=== PATIENT | male | born 1960 | race Caucasian/White ===

== ENCOUNTER 2016-11-14 07:14 | Day surgery (SDC) | payer OTHER ==
[~2016-11-14] VITALS: Ht 185.4 cm; Wt 120.0 kg
[~2016-11-14 07:14] MED LIST: 0.9% Sodium Chloride 1,000 ML IV SCH; AMLO10TA5 PO; BENZ200C44 PO; BUSP15TA3 PO; CETI10CA PO; FLUT9.9S NS; HYDR25TA4 PO; IBUP800T28 PO; LEVO500T79 PO; LISI-567 PO; PANT40TA2 PO; PRED50TA PO; SILD20TA14 PO; Sodium Chloride LOK Flush 10 mL Syringe IV PRN; fentaNYL-PF 50 mCg/mL 2 mL Inj IVPUSH PRN
[2016-11-14 07:46] VITALS: BP 130/84; PULSE 82; RESP 16; O2SAT 98
[2016-11-14 08:14] VITALS: BP 106/75; PULSE 78; RESP 12; O2SAT 98
--- NOTE | 2016-11-14 08:21 | ENDO ---
[address] [address] ENDOSCOPY PROCEDURE PATIENT: NIYAH ROME : 1960 MR#: [id number] ADMIT: 11/14/2016 JOB ID: [id number] DATE: 11/14/2016 PROCEDURE: Colonoscopy. INDICATION: Colon cancer screening. The patient's ASA classification is 2. Mallampati score is 2. MEDICATIONS: Please see nurse's notes. INSTRUMENT USED: PCF H 180 AL. PREPARATION QUALITY: Good. PROCEDURE DETAILS: After informed consent was obtained, the patient was brought to the GI suite, where he was placed on oxygen via nasal cannula and monitored with continuous pulse oximeter, telemetry and blood pressure monitoring. A time-out was performed. Then, he was placed in a left lateral decubitus position and medications were administered for sedation. Digital rectal exam was performed which was unremarkable. The colonoscope was then inserted into the rectum and advanced to the distal sigmoid colon where we encountered a mass. The mass was quite friable. I was unable to advance the scope beyond this point secondary to luminal narrowing from this circumferential mass. Multiple biopsies were obtained of the mass and Jenny ink was injected just distal to the mass. Retroflexion was performed in the rectum, which was unremarkable. IMPRESSION: Distal sigmoid tumor, appearance suggestive of malignant neoplasm. RECOMMENDATIONS: 1. CT chest, abdomen and pelvis with IV contrast. 2. Check CBC and CMP. 3. Oncology and surgical consultations. COMPLICATIONS: None. ESTIMATED BLOOD LOSS: Less than 5 mL.
[2016-11-14 08:30] VITALS: BP 111/77; PULSE 91; RESP 16; O2SAT 98
[2016-11-14 09:15] LABS: Mean Corpuscular Hemoglobin 26.9 pg (27.0-35.0); Mean Corpuscular Volume 82.8 fL (81-100)
--- NOTE | 2016-11-19 11:23 | PATH ---
SURGICAL PATHOLOGY Attending Physician:Renate Cobian CASE STATUS: Signed Out PATIENT NAME: NIYAH ROME PID: [id number] : 1960 DATE COLLECTED:11/14/2016 15:27 SPECIMEN: Colon, Biopsy CLINICAL HISTORY: 1. SIGMOID MASS BIOPSY FINAL DIAGNOSIS: Sigmoid Colon Mass Biopsy: Adenocarcinoma, poorly differentiated (high grade). Mismatch repair gene panel by immunohistochemistry ordered to be reported by addendum. Case reviewed by Dr. Kyung Reis who agrees with the diagnosis. Results of this evaluation are telephoned to the office of Dr. Corby Bianchi at 0955 on 11/17/2016. ICD10: C18.7 GROSS DESCRIPTION: The specimen is received in one formalin filled container labeled with the patient's name, sublabeled "sigmoid mass" and consists of 4 portions of tissue which aggregate to 0.3 x 0.3 x 0.3 CM. The specimen is entirely submitted in one cassette. 11/14/2016 [facility] ICD-9 CODES: CPT CODES: 1: 20063, 47613, 92845, 44771, 21582 PROCEDURE/ADDENDA: Addendum SPI Addendum Diagnosis IMMUNOHISTOCHEMISTRY RESULTS: Sigmoid Mass Biopsy (MMR panel): MLH1: Tumor cells positive. Intact nuclear expression. MSH2: Tumor cells positive. Intact nuclear expression. MSH6: Tumor cells positive. Intact nuclear expression. PMS2: Tumor cells positive. Intact nuclear expression. INTERPRETATION: Positive staining indicates no loss of nuclear expression of MMR proteins: low probability of microsatellite instability-high (MSI-H)* * There are exceptions to the above IHC interpretations. These results should not be considered in isolation, and clinical correlation with genetic counseling is recommended to assess the need for germline testing. * This test was developed and its performance characteristics determined by [facility]. It has not been cleared or approved by the U.S. Food and Drug Administration. The FDA has determined that such clearance or approval is not necessary. This test is used for clinical purposes. It should not be regarded as investigational or for research. Addendum Comment {Not Entered} Electronically Signed Out Dariel Pool MD Electronically Signed Out Dariel Pool MD [facility] [address], [place] [address] Technical component performed at [facility], [address], [place], [address]
[2016-11-21] MEDS ORDERED: DXPN25C PO (09:06)
== END 2016-11-14 23:59 | disposition home or self-care (01) ==
LOC: END 07:14
PROVIDERS: ATTEND Internal Medicine Gastroenterology
DX: Z12.11 Encounter for screening for malignant neoplasm of colon (principal); C18.7 Malignant neoplasm of sigmoid colon; Z83.71 Family history of colonic polyps
CPT/HCPCS: 36415; 45380; 45381; 80053; 82378; 85027; G0500; J2250; J3010; J7030

== ENCOUNTER 2016-11-27 05:36 | Inpatient (IN) | payer OTHER ==
[2016-11-27] VITALS (16 sets, daily range): BP systolic 131–155; BP diastolic 74–92; PULSE 81–133; RESP 11–20; O2SAT 96–100
[~2016-11-27] VITALS: Ht 185.4 cm; Wt 124.8 kg
[~2016-11-27 05:36] MED LIST changes: -0.9% Sodium Chloride 1,000 ML IV SCH; -BENZ200C44 PO; +CALC600T12 PO; +DXPN25C PO; -LEVO500T79 PO; +MULT-1073 PO; +OMEP40CA36 PO; +POTA99TA21 PO; -PRED50TA PO; -Sodium Chloride LOK Flush 10 mL Syringe IV PRN; -fentaNYL-PF 50 mCg/mL 2 mL Inj IVPUSH PRN; +magnesium PO
[2016-11-27] MEDS ORDERED: Bupivacaine Liposome 1.3% 20 mL Inj INFILTRATE ONE (06:00)
[2016-11-27] MEDS ORDERED: metroNIDAZOLE Inj 500 MG in IV Premix 1 EACH IV ONE (06:00)
[2016-11-27] MEDS ORDERED: Clindamycin Inj 900 MG in IV Premix 1 EACH IV ONE (06:00)
[2016-11-27] MEDS: Lactated Ringer's 1,000 ML IV SCH ×2 (06:32→07:37)
--- NOTE | 2016-11-27 07:23 | PCM.HPANE ---
Patient Data Date of Service: Nov 27, 2016 Surgeon Admitting Provider: Attending Provider:Dashawn Jean MD Primary Care Physician:Meredith Bush MD Other Provider:Dylan Castillo Anesthesia Reason for Visit Sigmoid Colon Cancer Ht/WT & BMI Height (Feet): 6 Height (Inches): 1 Weight (Kilograms): 118.9 Body Mass Index 34.00 Allergies Coded Allergies: amoxicillin (Verified Allergy, Severe, BREATHING PROBLEMS, 11/25/16) cefaclor (Verified Allergy, Severe, ABD CRAMPING, 11/25/16) cimetidine (Verified Allergy, Severe, DISORIENTATION, 11/25/16) clavulanic acid (Verified Allergy, Severe, resp. difficulty, 11/25/16) ofloxacin (Verified Allergy, Severe, DIZZINESS, 11/21/16) prednisone (Verified Allergy, Severe, DIFFICULTY BREATHING, 11/25/16) Sulfa (Sulfonamide Antibiotics) (Verified Allergy, Unknown, UNKNOWN, ) alprazolam (Verified Allergy, Unknown, UNKNOWN, 11/25/16) codeine (Verified Allergy, Unknown, UNKNOWN, 11/21/16) erythromycin base (Verified Allergy, Unknown, UNKNOWN, 11/25/16) guaifenesin (Verified Allergy, Unknown, UNKNOWN, 11/25/16) hydrocodone (Verified Allergy, Unknown, UNKNOWN (PT TAKING DRUG), 11/25/16) phenylephrine (Verified Allergy, Unknown, UNKNOWN, 11/25/16) pseudoephedrine (Verified Allergy, Unknown, UNKNOWN, 11/25/16) Past Anesthesia History Anesthesia History: Denies:: Abnormal Airway, Anesthesia Reactions, Difficult Intubation, Fam Anesthesia Reaction, Fam Malignant Hypertherm, Malignant Hyperthermia Diabetes History Hx Diabetes?: No Current Bedside Blood Glucose: 87 MRSA MRSA: No Medications Blood Thinner: Aspirin Last Dose Blood Thinner: Nov 24, 2016 Hypertension Medication: Yes (NORVASC,LISINOPRIL) Home Meds Incl Beta Nahed: No Reported Medications Potassium Gluconate (Potassium)99 Mg Tablet1-2 Tab PO DAILY 11/25/16 [magnesium] No Conflict Check1 Tab PO DAILY 11/25/16 Calcium Carbonate (Calcium)600 Mg Wudjkv170 Mg PO DAILY 11/25/16 Multivits-Min/FA/Lycopene/Lut (Centrum Silver Tablet)1 Each Tablet1 Each PO DAILY 11/25/16 Fluticasone Propionate (Flonase Allergy Relief)50 Mcg/Actuation [place].susp2 Sprays NS prn 11/25/16 Doxepin 25 Mg Owiwnhb60 Mg PO DAILY-BID 30 Days 11/21/16 Cetirizine HCl (Zyrtec)10 Mg Vwfjltb62 Mg PO HS #30 CAPSULE Ref 0 11/13/16 Sildenafil Citrate (Sildenafil)20 Mg Ofdpec40-67 Mg PO DAILY PRN PRN 11/13/[address] (Protonix)40 Mg Ziceao95 Mg PO DAILY Ref 0 11/13/16 Amlodipine (Norvasc)10 Mg Uhfjoy31 Mg PO DAILY Ref 0 11/13/16 Lisinopril 20 Mg Evnoej93 Mg PO DAILY 30 Days Ref 0 11/13/16 Ibuprofen 800 Mg Vncjce843 Mg PO TID PRN For Pain Ref 0 11/13/16 Hydrochlorothiazide 25 Mg Ioepsl23 Mg PO DAILY 30 Days Ref 0 11/13/16 Buspirone 15 Mg Rniakz97 Mg PO BID Ref 0 11/13/16 Discontinued Reported Medications Omeprazole 40 Mg Capsule.dr40 Mg PO DAILY Ref 0 11/25/16 Omeprazole Magnesium (Prilosec Otc)20 Mg Tablet.dr40 Mg PO DAILY #1 PKG Ref 0 11/25/16 Fluticasone Propionate (Flonase Allergy Relief)50 Mcg/Actuation [place].susp9.9 Ml NS 11/13/16 Benzonatate 200 Mg Bxfgcfk434 Mg PO 11/13/16 History History of ENT Problems?: No HEENT History: Positive for:: Cataracts (DRY EYES) Denies:: Abnormal Airway Difficult Intubation Dysphagia (RECENT) Glaucoma Hearing Problem Sinus Problem TMJ Denture Type: None Teeth Condition: Within Normal Limits Hx of Heart Problems?: Yes Cardiovascular History: Positive for:: Chest Pain Hypertension Peripheral Vascular (S/P B/L RFA'S LE) Denies:: AICD Abdominal Aortic Aneurism Atrial Fibrillation Cardiac Surgery Congestive Heart Failure Coronary Artery Disease Heart Murmur Irregular Heartbeat Pacemaker Rheumatic Fever Thrombophlebitis Valvular Heart Disease Hx of Respiratory Problem?: No Respiratory History: Positive for:: Use of C-PAP Machine (SNORES) Denies:: Asthma COPD Dyspnea Emphysema Hemoptysis Tuberculosis Hx Neurologic Problems?: No Neurological History: Denies:: Alzheimer's Disease CVA Dementia Dizziness Headaches Multiple Sclerosis Parkinson's Disease Seizures Hx of GI Problems?: No Gastrointestinal History: Positive for:: Gastroesphageal Reflux Other GI Pertinent History: .C/OF RECENT UPPER ABD PAIN - attributes to bowel prep Hx of Problems?: Yes Genitourinary History: Positive for:: Kidney Stones (8 months ago) Denies:: HX of Hemodialysis Urinary Tract Infection HX of Peritoneal Dialysis: No Other Pertinent History: Male Hx: Denies:: Prostate Problems Scrotal Mass Testicular Surgery (HX HYPOGONADISM) Other History/Comment No sildenafil x48+ hrs Skin History: Positive for:: History Skin Disorders? (HX OF TINEA CORPORIS, RASHES) Denies:: Pressure Ulcers Hx Musculoskeletal Problems?: Yes Musculoskeletal History: Positive for:: Musculoskeletal Trauma (LEFT KNEE SURGERY) Denies:: Back Injury Joint Replacement Hx of Psycho/Social Problems?: No Psycho Social History: Denies:: Anxiety Bipolar Disorder Hx Depression Hx Surgeries?: Yes (LEFT KNEE, SINUS SURGERY ) Hx Any Other Health Problems?: No Other History: Positive for:: Hospitalization Denies:: Cancer Endocrine Disease Thyroid Disease History Blood Transfusions: Positive for:: Accept Blood Products? Denies:: Blood Transfusions Hx Diabetes: NoBedside Blood Glucose: 87 Hx Alcohol Use: NoHx Substance Use: No Smoking Status: Former Smoker (quit ') Have You Smoked inLast 12 mo: NoApprox How Many Cigarettes/day: 20PK/YR/HX Stop/Bang Treated for Sleep Apnea?: No Do You Have a CPAP Machine?: No S-Snoring: Do You Snore Loudly: No T-Tired: feel tired, fatigued: No O-Obsered: Observed not breath: No P-Blood Pressure: treated: Yes B- Body Mass Index > 35 kg/m2: Yes A- Age over 50: Yes N- Neck Large Circumference: No G- Gender Male: Yes DANIELLE Total Score: 4 DANIELLE Risk Assessment: High Risk, =/>3 Yes DANIELLE Category 2: Yes Risk Assessment Category Category 1A: Patient has history of documented sleep apnea, and HAS NOT received any narcotic, sedative or anesthesia administration during this stay. Category 1B: Patient has history of documented sleep apnea, and HAS received any narcotic , sedative or anesthesia administration during this stay Category 2: Patient has SUSPECTED Obstructive Sleep Apnea, and HAS received any narcotic , sedative or anesthesia administration during this stay. Category 3: Patient has SUSPECTED Obstructive Sleep Apnea and HAS NOT received narcotic, sedative or anesthesia administration during this stay. Category 4: Outpatient in Procedural Areas with known sleep apnea or who screen positive for High Risk via the STOP/BANG questionnaire. Exam Exam Vital Signs Vital Signs Date Time Temp Pulse Resp B/P Pulse Ox O2 Delivery O2 Flow Rate FiO2 11/27/16 06:13 36.3 81 16 131/77 100 Room Air General Appearance: Alert, Oriented X3, Cooperative, No Acute Distress HEENT/AIRWAY: MP 3, Neck Movement (from), Mouth Opening (3), Other (tmd3) Lungs: Normal Air Movement Heart: Exam Unremarkable, Regular Rate/Rhythm, Normal S1, Normal S2, No Murmurs /Rubs/Gallops Meds/Labs/Diagnostics Admission Meds Current Medications Lactated Ringer's (Lr) 1,000 ml @ 120 mls/hr Q8H20M IV Last administered on t 06:32; Start 11/27/16 at 05:00; Stop 11/27/16 at 13:19 Bedside Blood Glucose: 87 Plan Impression Patient chart reviewed, patient interviewed and anesthestic plan with risks, benefits, and alternatives discussed, and informed consent obtained. NPO per Anesth. Guidelines: Yes ASA Physical Status: ASA3 Severe Disease Anesthetic Plan: GA Bene/Risks/Altern/Consents: Yes HP Complete Prior to Induction: Yes Oj Villegas MD Nov 27, 2016 07:23
[2016-11-27] MEDS ORDERED: Lactated Ringer's 500 ML IV PRN (08:23)
[2016-11-27] MEDS ORDERED: Lactated Ringer's 1,000 ML IV SCH (08:23)
[2016-11-27] MEDS ORDERED: MetoCLOpramide 5 mg/mL 2 mL Inj IVPUSH PRN (08:25)
[2016-11-27] MEDS ORDERED: Dexamethasone 4 mg/mL Inj IVPUSH PRN (08:25)
[2016-11-27] MEDS ORDERED: fentaNYL-PF 50 mCg/mL 2 mL Inj IVPUSH PRN (08:25)
[2016-11-27] MEDS ORDERED: EPHEDrine Sulfate 50 mg/mL Inj IVPUSH PRN (08:25)
[2016-11-27] MEDS ORDERED: Ondansetron 2 mg/mL 2 mL Inj IVPUSH PRN ×2 (08:25→11:40)
[2016-11-27] MEDS ORDERED: Bupivacaine-MPF 0.5% W/EPI 30 mL Inj INFILTRATE ONE (08:46)
[2016-11-27] MEDS ORDERED: Lactated Ringer's 1,000 ML IV ONE (11:14)
[2016-11-27] MEDS ORDERED: HYDROmorphone 0.5 mg/0.5 mL iSecure Syringe IVPUSH PRN (11:45)
[2016-11-27] MEDS: HYDROmorphone 1 mg/mL Inj IVPUSH PRN ×3 (11:56→12:18)
--- NOTE | 2016-11-27 12:08 | PCM.SURGOP ---
Surgical Operative Report Date of Service: Nov 27, 2016 Pre Operative Diagnosis Metastatic sigmoid colon cancer Post Operative Diagnosis Same Procedure: Laparoscopic liver biopsy, laparoscopic assisted low anterior resection with end descending colostomy Surgeon and Coil Tier: Surgeon: Dashawn Jean MD Assistants: Ruddy Bolden PA-C Indication for Procedure 56-year-old man who presented with a change in bowel habits with frequent small bowel movements and abdominal discomfort. He underwent a limited colonoscopy by Dr. Barton which demonstrated a nearly obstructive lesion in the distal sigmoid colon. Measurement from the anal verge was not obtained. Biopsies showed adenocarcinoma. CT scan of the chest, abdomen and pelvis showed almost definite liver metastases and multiple bilateral pulmonary nodules. There was a suspicious pelvic mesenteric mass and enlarged mesocolonic lymph nodes, as well as irregular thickening of the distal sigmoid colon. His preoperative CEA level was 255.1. He underwent preoperative mechanical and antibiotic bowel preparation. He was treated preoperatively with Strong for Surgery nutritional protocol. After discussion of risks and benefits, he agreed to proceed with a laparoscopic liver biopsy and low anterior resection with descending colostomy. Serious consideration was not given to primary anastomosis because of his need to promptly be treated with adjuvant chemotherapy after surgery. He was marked preoperatively for descending colostomy. Findings: There was a definite liver metastasis adjacent to the gallbladder in the right inferior hepatic lobe. The lesion in the caudate lobe could not be visualized. There were several other small lesions on the capsule of the left lateral segment. The tumor was present at 13 cm from the anal verge by rigid proctoscopy. The distal extent of the tumor extended below the peritoneal reflection, and there almost certainly is residual pelvic disease in the mesentery. Procedure Details After smooth induction of general endotracheal anesthesia, a Banda catheter was placed. He was placed initially in the high lithotomy position. Rigid proctoscopy was performed, which revealed the nearly obstructing lesion at 13 cm from the anal verge with the rigid scope. The scope was removed. He was then placed in the low lithotomy position, and was prepped and draped in wide sterile fashion. A procedural pause was performed according to the SCOAP checklist, and all were found to be in agreement. A vertical incision was made above the umbilicus, and dissection was carried down through the subcutaneous tissue until the midline fascia was incised and a 12 mm laparoscopy port was placed under visualization. Pneumoperitoneum was established. Inspection revealed no evidence of carcinomatosis. He large amount of intra-abdominal fat, and visualization was difficult. A 5 mm port was placed in the right abdomen at the level of the umbilicus under visualization. By placing in steep reverse Trendelenburg position and retracting on the liver, a certain liver metastasis was visualized in the right inferior hepatic lobe adjacent to the gallbladder. A liver biopsy was obtained using 3 passes of the Alberto-Cut needle through a small right subcostal incision. Those were sent for permanent pathology. There was no bleeding from the liver biopsy site. He was then placed inside deep Trendelenburg position. An additional 5 mm port was placed through his left abdominal marking for colostomy , as well as a 5 mm port in the lower midline. Dissection was begun laparoscopically, although I was not able to complete very much of the mesenteric dissection laparoscopically because he had an extremely narrow pelvis with bulky mesorectal disease. The peritoneum was incised on both sides of the peritoneal reflection, and continued anteriorly. Proximal dissection was performed with the LigaSure device, although this wound up being fairly limited, again because he had very bulky mesorectal and mesocolonic disease, and dissection was not safe in a laparoscopic fashion because of his morbid obesity and narrow pelvis, limiting the visualization. An incision was made from below the umbilicus to the symphysis pubis. A wound protector was placed. A Bookwalter retractor was placed. The sigmoid colon was skeletonized in its midportion, and it was divided using a firing of the FOREST 75 mm stapler with a blue load. The mesocolon was incised on the peritoneum down to the previous lateral pelvic dissection with electrocautery. The LigaSure device was used to continued the mesocolonic and mesorectal dissection. Branches of the inferior mesenteric artery had to be controlled with medium hemoclips. There was bulky disease involving his posterior mesorectum, and I suspect that he has residual disease at the end of his operation today in the pelvis. The colon lesion itself was resected with a grossly negative margin, as it was not adherent to the pelvic sidewall. Dissection was very difficult, again because of his obesity and narrow pelvis. Ultimately, the rectum was able to be skeletonized below the palpable tumor. The proximal rectum was divided with the contour stapler. The specimen was brought out and opened on the back table, revealing that the distal margin beyond the tumor was approximately 1-2 cm. The proximal margin was wide. The rectosigmoid colon was sent for permanent pathology. Hemostasis was adequate. The descending and sigmoid colon was mobilized by incising the white line of Toldt laterally until it would reach the previously marked colostomy site in the left upper abdomen. The laparoscopy ports were removed. A circular incision was made at the marked colostomy site, and the skin and subcutaneous tissue was excised. A cruciate incision was made in the rectus fascia anteriorly. The sigmoid colon proximally was brought out through the ostomy site, where it was able to remain in place with perfusion and no tension. The wound protector was removed. Gloves and instruments were changed. The midline fascia was closed with running looped 0 PDS sutures 2. Liposomal bupivacaine was instilled into the subcutaneous tissue and fascia. The fascia of the umbilical port site was closed with an 0 Vicryl suture in a [id number]. The skin incisions were closed with running 4-0 Monocryl subcuticular stitches. Dermabond was applied to all the incisions and allowed to dry. The staple line of the proximal sigmoid colon was excised and discarded , and the colostomy was matured using interrupted 3-0 Vicryl sutures. A colostomy appliance was applied. At the end of the case all needle and sponge counts were correct 2. The patient was awakened from anesthesia without difficulty, and taken to the recovery room in satisfactory condition, having tolerated the procedure well. Complications There were no periprocedural complications identified. Surgical Specimen Removed: Yes Specimen sent to Pathology: Yes Surgical Specimen description: Liver biopsy. Rectosigmoid colon. Anesthetic Plan: GA Grafts, Implants: None Output, Estimated Blood Loss: 50 Blood Administration during brooks: No Drains: None Catheters: Urethral 2 Way Banda copies to: Chelsea Bianchi MD; Alejandro Sandoval MD; Meredith Bush MD, Joshua D MD Nov 27, 2016 12:08
[2016-11-27] MEDS ORDERED: Succinylcholine Chloride 20 mg/mL 5 mL Inj ONE (12:55)
[2016-11-27] MEDS ORDERED: Ondansetron 2 mg/mL 2 mL Inj ONE (12:55)
[2016-11-27] MEDS ORDERED: Rocuronium 10 mg/mL 5 mL Inj ONE (12:55)
[2016-11-27] MEDS ORDERED: MetoCLOpramide 5 mg/mL 2 mL Inj ONE (12:55)
[2016-11-27] MEDS ORDERED: fentaNYL-PF 50 mCg/mL 2 mL Inj ONE (12:55)
[2016-11-27] MEDS ORDERED: Dexamethasone 4 mg/mL Inj ONE (12:55)
[2016-11-27] MEDS ORDERED: hydrALAZINE 20 mg/mL Inj ONE (12:55)
[2016-11-27] MEDS ORDERED: Propofol 10,000 mCg/mL 20 mL Inj ONE (12:55)
[2016-11-27] MEDS ORDERED: HYDROmorphone 1 mg/mL Inj ONE (12:55)
[2016-11-27] MEDS: Dextrose 5% Lactated Ringer's 1,000 ML IV SCH (13:14)
[2016-11-27] MEDS: Polyethylene Glycol (PEG) 17 Gm Powder PO SCH (13:19)
[2016-11-27] MEDS: HYDROmorphone PCA 0.2 mg/mL 30 mL Inj IV PRN (13:20)
[2016-11-27] MEDS: Acetaminophen IV 1,000 MG in IV Premix 1 EACH IV SCH ×2 (16:33→22:58)
--- NOTE | 2016-11-27 17:33 | PCM.ANEP1 ---
Post Anesthesia PACU Phase 1 Assessment Date of Service: Nov 27, 2016 Vital Signs Vital Signs Date Time Temp Pulse Resp B/P Pulse Ox O2 Delivery O2 Flow Rate FiO2 11/27/16 16:59 37.2 117 18 137/88 97 Nasal Cannula 2.00 11/27/16 13:00 Supplement Oxygen 11/27/16 12:58 36.2 113 16 151/92 99 Nasal Cannula 2.00 11/27/16 12:45 108 11 143/80 97 Nasal Cannula 2 11/27/16 12:30 107 14 138/78 98 Nasal Cannula 2 11/27/16 12:20 102 12 143/74 97 Nasal Cannula 2 11/27/16 12:15 102 13 150/90 98 Nasal Cannula 2 11/27/16 12:00 101 16 141/79 100 Nasal Cannula 2 11/27/16 11:45 36.4 99 15 149/80 100 Simple Mask 7 11/27/16 11:40 100 16 139/87 100 Simple Mask 7 11/27/16 11:35 103 14 132/80 99 Simple Mask 7 11/27/16 11:30 106 15 155/84 100 Simple Mask 7 11/27/16 11:28 36.6 155/86 Level of Alertness: Awake, talking DEE's with Equal Strength: Yes Pain: No Pain Scale Score: 4 Nausea or Vomiting: No CV Function & Hydration Stable: Yes Airway Device: Oralpharangeal Airway Oxygen Delivery: Room Air Lungs: Normal Air Movement Summary 11/27/16 16:59 37.2 117 18 137/88 97 Nasal Cannula 2.00 PACU Phase 2 Assessment Complications: No Follow up Care: N/A Patient Instructions Provided: N/A Oj Villegas MD Nov 27, 2016 17:33
--- NOTE | 2016-11-27 18:09 | NUR ---
Post op Transferred from PACU to OSC room 1022 via stretcher at 12:55. Report received from Tristan. Pt alert and oriented, incisions with [place] hamilton clean and dry. Ostomy draining scant sanguineous/brownish fluid. Denies pain and nausea at that time. 18:15 HR increasing up to 130 and sustaining in the mid 110's. Otherwise, VSS. Pt dangled at edge of bed and tolerates full liquids with good appetite. paged and aware of pt condition, states he will round this evening.
[2016-11-27] MEDS: BusPIRone 15 mg Dividose Tablet PO SCH (20:54)
[2016-11-28] VITALS (17 sets, daily range): BP systolic 113–150; BP diastolic 75–97; PULSE 101–154; RESP 16–24; O2SAT 93–98
[2016-11-28] MEDS: Dextrose 5% Lactated Ringer's 1,000 ML IV SCH ×2 (03:26→12:40)
[2016-11-28] MEDS: Acetaminophen IV 1,000 MG in IV Premix 1 EACH IV SCH ×4 (04:19→20:38)
--- NOTE | 2016-11-28 05:10 | NUR ---
Update Pt. tolerating full liquids well. Pt. states pain can get up to a 5/10 at times with flatus passing. However, RANGE MASTER adequate for keeping pain in control. Will continue to monitor.
[2016-11-28 06:35] LABS: BASOPHILS % (AUTO) 0.2 % (0-3); EOSINOPHILS % (AUTO) 0.6 % (0-5); MONOCYTES % (AUTO) 9.3 % (4-12); Mean Corpuscular Hemoglobin 26.7 pg (27.0-35.0); Mean Corpuscular Volume 82.5 fL (81-100); NEUTROPHILS % (AUTO) 77.2 % (40-74); Platelet Count 394 bil/L (150-400)
--- NOTE | 2016-11-28 06:53 | NUR ---
Banda d/c Banda d/c at 0645. Pt. educated on voiding trial. 10cc of saline taken out.
[2016-11-28] MEDS: Pantoprazole 40 mg ER24 Tablet PO SCH (08:29)
[2016-11-28] MEDS: BusPIRone 15 mg Dividose Tablet PO SCH ×2 (08:29→20:38)
[2016-11-28] MEDS: HYDROmorphone PCA 0.2 mg/mL 30 mL Inj IV PRN (09:34)
[2016-11-28] MEDS: Polyethylene Glycol (PEG) 17 Gm Powder PO SCH (12:53)
--- NOTE | 2016-11-28 13:41 | NUR ---
Pain/incisions/ostomy Pain 3-5/10. PRESSROOM FOREMAN and IV Tylenol. He does report sudden "shocky" pains with very light touch, like bedsheets. to his suprapubic area. This pain does not occur with firm touch. Likens pain to when a dentist touches a tooth. States these pains are sudden, but go away quickly. Distal end of midline incision is slightly unapproximated. Ostomy draining sanguineous/blackish/brownish fluid. Appliance leaking; wound care nurse re-applied and provided education. Still tachycardic and very slightly febrile at 37.1 despite tylenol. No post-op antibiotics ordered, surgical forceps fabricator aware. transportation operations manager and surgical PA at bedside, and aware of all of above. No new orders at this time.
[2016-11-28] MEDS ORDERED: 0.9% Sodium Chloride 1,000 ML IV ONE ×3 (15:25→16:00)
--- NOTE | 2016-11-28 15:27 | NUR ---
NUTRITION ASSESSMENT: ASSESS: 56YO M admit with colon CA, mets to liver now s/p colostomy and lower anterior resection. Diet advanced to full liquid, impact advanced recovery supplement added per SCOAP protocol. PMHX: HTN,PVD,GERD DIET: Full Liquid. PO 100% LABS: Glu 110 MEDS: Reviewed GI: Wound care for ostomy WEIGHT:118.9kg BMI: 34.0 EST.NEEDS: CANCER/OBESITY (20-22kcal/kg;1.2-1.8g/kg IBW) NUTRITION DIAGNOSIS: (1) Increased protein needs related to increased demand for nutrients as evidenced by cancer and now s/p surgery. INTERVENTION: (1) Impact advanced recovery supplement added to meals per SCOAP protocol. MONITOR/EVALUATE: Pt with good po intake, monitor per moderate risk protocol. Addendum: 11/28/16 at [address] KCAL: [phone] PRO: 120-144g
--- NOTE | 2016-11-28 15:53 | NUR ---
Wound Care 56 yo male, s/p colectomy for colon cancer 11/27/16. Patient seen at bedside for colostomy teaching, he complains only of skin discomfort at the distal midline abdominal incision which is slightly open and dressed at this time with a gauze and tape dressing Stoma is draining dark burgundy drainage, stoma itself is dark maroon in color and prominent approximately 58mm in size, mucocutaneous border is intact. Instructed in application of 2 piece convatec flat moldable wafer and pouch system, instructed in peristomal skin care and in emptying of pouch. Patient seemed somewhat distracted during teaching and will need continued education.
[2016-11-28] MEDS ORDERED: cefTRIAXone Inj 2,000 MG in Dextrose 5% Minibag Plus 50 ML IV SCH (16:00)
[2016-11-28] MEDS: levoFLOXacin Inj 750 MG in IV Premix 1 EACH IV SCH (16:24)
[2016-11-28 16:48] LABS: BASOPHILS % (AUTO) 0.3 % (0-3)
[2016-11-28] MEDS: metroNIDAZOLE Inj 1,000 MG in IV Premix 1 EACH IV SCH ×2 (16:51→23:25)
[2016-11-28 16:54] LABS: EOSINOPHILS % (AUTO) 2.5 % (0-5); MONOCYTES % (AUTO) 7.1 % (4-12); Mean Corpuscular Hemoglobin 27.2 pg (27.0-35.0); Mean Corpuscular Volume 81.4 fL (81-100); NEUTROPHILS % (AUTO) 84.3 % (40-74); Platelet Count 328 bil/L (150-400)
--- NOTE | 2016-11-28 16:55 | DRSVH ---
PROCEDURE: CT CHEST, ABDOMEN AND PELVIS [facility] CONTRAST ([id number]) INDICATIONS: Shortness of breath with fever and leukocytosis one day postop. TECHNIQUE: After the administration of oral and intravenous contrast, 5 mm thick sections acquired from the lung apices to the symphysis. 5 mm coronal and sagittal reformats were performed, with additional 7 mm c oronal MIP reformats through the lungs. For radiation dose reduction, the following was used: autom ated exposure control, adjustment of mA and/or kV according to patient size. COMPARISON: None. FINDINGS: Image quality: Excellent. CHEST: Lungs and pleura: Multiple small bilateral pulmonary nodules are redemonstrated which appears simila r to slightly increased in size compared to the prior study a field representative medial left lower lobe n odule on series 4 image 22 measures up to 10 mm, slightly increased from 9 mm previously. There is n ew posterior atelectasis bilaterally. No pleural effusions or pneumothorax. Central and peripheral airways appear patent and normal in caliber. Mediastinum: Heart size is normal. No pericardial effusion. No mediastinal or hilar adenopathy by size criteria. Thoracic aorta and central pulmonary arteries are normal in size. Esophagus is harika l in caliber. No hiatal hernia. Chest wall: No axillary or supraclavicular adenopathy by size criteria. There is a small hypoattenu ation nodule within a partially visualized thyroid gland, measuring up to 1.3 cm. ABDOMEN: Solid organs: Multiple hypoattenuating mass lesions are redemonstrated within the liver the largest in the caudate lobe measuring up to approximately 6.2 x 5.2 cm in dimension. These appear similar in size compared to the prior study given differences in technique. The spleen is normal in size. The gallbladder appears within normal limits without calcified gallstones. Biliary system is non dilate d. Pancreas enhances normally. No adrenal nodules. Kidneys demonstrate no hydronephrosis. Peritoneum and bowel: There are postsurgical changes consistent with interval partial distal colecto my with a diverting right lower quadrant colostomy. Bowel loops demonstrate normal caliber and wall thickness. There are a few scattered air-fluid levels in the small and large bowel likely reflecting an ileus. There is a small amount of intraperitoneal free fluid is seen within the elbows. No disc rete rim-enhancing collections to suggest a definite abscess. There are also a few small foci of res idual free air from recent surgery. Nodes and vessels: No retroperitoneal or mesenteric adenopathy by size criteria. There are new surg ical clips in the mesentery. Aorta and inferior vena cava are normal in size. Miscellaneous: No ventral hernias. PELVIS: Genitourinary: Bladder wall thickness is normal. There is a small amount of gas within the bladder likely from recent catheterization. Miscellaneous: No inguinal hernias or adenopathy. Bones: No suspicious bony lesions. No vertebral body compression fractures. IMPRESSION: 1. Postsurgical changes consistent with interval partial colectomy with a diverting left lower quadr ant colostomy. Small amount of free fluid is demonstrated in the abdomen and pelvis without a defini te rim-enhancing collection to suggest an abscess. 2. Bibasilar atelectasis in the lungs. 3. Scattered bowel air-fluid levels compatible with postoperative ileus. 4. Multiple pulmonary nodules and hepatic mass lesions redemonstrated compatible with metastatic dis ease. Dictated by: Daniel Myrick M.D. on 11/28/2016 at 16:40 Approved by: Daniel Myrick M.D. on 11/28/2016 at 16:53
--- NOTE | 2016-11-28 17:07 | PCM.PNSURG ---
Subjective Date of Service: Nov 28, 2016 Visit Information: Reason for Visit Sigmoid Colon Cancer Surgery/Surgery Date lap sig colectomy/colostomy/liver bx 11/27/16 Post-Op Day # Date of Admission: Nov 27, 2016 at 12:54 Hospital Day # Subjective: Reports quiet night overall, though poor sleep Abdomen sore, but not frankly painful Denies nausea or vomiting Tolerating some sips of liquid Afebrile Has not yet ambulated No flatus as of yet Objective Vital Sign- Last 8 Hours Date Time Temp Pulse Resp B/P Pulse Ox O2 Delivery O2 Flow Rate FiO2 11/28/16 14:32 39.4 133 20 136/90 93 Nasal Cannula 11/28/16 12:59 37.1 117 18 139/80 97 Room Air 11/28/16 09:37 37.1 Intake and Output- Last 8 Hour 11/28/16 Cumulative From/Thru 07:00 11/21/16 09:06 - 11/28/16 06:43 Intake Total 2805 ml 5829 ml Output Total 2350 ml 3670 ml Balance 455 ml 2159 ml Intake Oral 1560 ml 2934 ml IV Total 1245 ml 2895 ml Output Urine Total 2350 ml 3570 ml Stool Total 0 ml Estimated Blood Loss 100 ml General: Oriented X3, Cooperative, No Acute Distress Neck: Full Range of Motion Lungs: Normal Air Movement Heart: Other (Slightly tachycardic in 110s) Abdomen: Other (Colostomy viable appearing, purple in color, not dusky. Some old blood in bag, no stool or gas. Lower midline incision c/d/i. Appropriately tender to palpation in RLQ. Mildly distended, not tympanitic. ) Extremities: Warm Neuro: Grossly Neurologically Intact Result Diagram: 11/28/16 1630 11/28/16 0535 Assessment & Plan Impression POD#1 s/p lap converted to open sigmoid colectomy with end colostomy and liver biopsy. No acute issues in immediate post-operative period. Problems: Plan Neuro: Continue IV apap and CT MRI TECHNOLOGIST for now. CV/pulm: Tachycardia likely secondary to pain vs under resuscitation. Will continue mVIF and PO liquids as tolerated. Low threshold for bolus vs EKG. GI: No colostomy output as of yet. Ok for full liquid diet. PRN anti-emetics. PPI. Renal: Removal bahena this morning. Cr wnl. Heme/ID: Hct 35%. No leukocytosis. No indication for antibiosis. FEN: mIVF. FLD. Lytes stable. Activity: Up ad miguel. Prophy: Lovenox. Dispo: Floor until ROBF. Likely 1-3 days. Aaron Serrano MD Nov 28, 2016 17:07
[2016-11-28] MEDS: 0.9% Sodium Chloride 1,000 ML IV SCH (17:32)
--- NOTE | 2016-11-28 17:52 | NUR ---
Change in pt condition 14:30 pt with chills. Febrile and HR increasing (see VS). enrollment services vice president at bedside and aware. HR continues increasing up to 160. Labored breathing, on 2L nc to keep sats above 92%. Pt somnolent, but arousable, oriented. Denies ETOH use at home, stating "a 6 pack lasts a year at my house." Surgical PA also at bedside. Ostomy very dark red and continues draining bloody brownish fluid. Pt denies abd pain and nausea at this time. Hospitalist involved and CT, chest Xray, labs, blood cultures obtained. Fluid boluses and IV antibiotics ordered and administered. At this time, HR is low 140s, tele Sinus Tach, BP stable 133/84. Pt continues to be somnolent, but easily wakes to voice. States he feels "better" and continues to deny pain. Phoned sister per pt request to update, and left message with callback #. Awaiting a bed on [facility].
--- NOTE | 2016-11-28 18:05 | PCM.CHPMED ---
Subjective Date of Service: Nov 28, 2016 Provider requesting consult: Donna To DO Primary Physician: Admitting Physician: Dashawn Jean MD Primary Care Physician: Meredith Bush MD Attending Physician: Dashawn Jean MD Chief Complaint: Chief Complaint: Hospitalist consultation for fever, tachycardia History of Present Illness: Gerardo Cabrales is a 56 year old man with past medical history significant for hypertension, anxiety/mood disorder with recent diagnosis of colon cancer with likely liver metastases who presented to [facility] for a scheduled Laparoscopic liver biopsy, laparoscopic assisted low anterior resection with end descending colostomy. The hospitalist team invited for consultation due to the patient's elevated temperature, sinus tachycardia and relative hypotension which is suggestive of occult infection. History significant for a change in bowel habits with 4-5 small volume bowel movements per day. This was subsequently evaluated in a "screening" colonoscopy on November 14 showed an obstructive mass in the sigmoid colon beyond which the scope could not be advanced and a biopsy was taken to be poorly differentiated adenocarcinoma. CT scan of the chest abdomen pelvis showed abnormalities suggestive of liver metastases with several hypodense lesions, the largest one measuring 5 cm. Perioperative CEA level was 255.1. This morning the patient's exam was notable for a temperature of 39.4 as well as tachycardia in the 150s to 160s. The patient was complaining of shaking chills. He denied any diaphoresis but has complained of abdominal pain. There was some concern about increased abdominal girth as well. During my interview with the patient he states that he feels not well this morning. He denies any past history of atrial fibrillation or tachycardia. He also noted that he is becoming short of breath and was requiring supplemental oxygen. Per the surgical team the patient did appear to be more diffuse today and was not answering questions clearly as the day prior. Review of Systems: A comprehensive Review of systems was performed and is negative except as noted above in history present illness. PMH Past Medical History Adenocarcinoma of the colon Hypertension Anxiety/depression Bedside Blood Glucose: 105 Surgical History Laparoscopic liver biopsy, laparoscopic assisted low anterior resection with end descending colostomy Home Medications 1. Amlodipine 10 mg. 2. BuSpar 50 mg b.i.d. 3. Calcium carbonate. 4. Cetirizine. 5. Doxepin 25 mg b.i.d. 6. Hydrochlorothiazide 25 mg. 7. Lisinopril 20 mg. 8. Omeprazole 40 mg. 9. Potassium chloride. 10. Viagra. 11. Magnesium. Allergies: Coded Allergies: amoxicillin (Verified Allergy, Severe, BREATHING PROBLEMS, 11/25/16) cefaclor (Verified Allergy, Severe, ABD CRAMPING, 11/25/16) cimetidine (Verified Allergy, Severe, DISORIENTATION, 11/25/16) clavulanic acid (Verified Allergy, Severe, resp. difficulty, 11/25/16) ofloxacin (Verified Allergy, Severe, DIZZINESS, 11/21/16) prednisone (Verified Allergy, Severe, DIFFICULTY BREATHING, 11/25/16) Sulfa (Sulfonamide Antibiotics) (Verified Allergy, Unknown, UNKNOWN, ) alprazolam (Verified Allergy, Unknown, UNKNOWN, 11/25/16) codeine (Verified Allergy, Unknown, UNKNOWN, 11/21/16) erythromycin base (Verified Allergy, Unknown, UNKNOWN, 11/25/16) guaifenesin (Verified Allergy, Unknown, UNKNOWN, 11/25/16) hydrocodone (Verified Allergy, Unknown, UNKNOWN (PT TAKING DRUG), 11/25/16) phenylephrine (Verified Allergy, Unknown, UNKNOWN, 11/25/16) pseudoephedrine (Verified Allergy, Unknown, UNKNOWN, 11/25/16) Family History Family History Patient has no family history of malignancies. Social History Hx Alcohol Use: NoHx Substance Use: NoHx Tobacco Use: No Smoking Status: Former Smoker (quit ') Exam Vital Signs Vital Sign - Last Date Time Temp Pulse Resp B/P Pulse Ox O2 Delivery O2 Flow Rate FiO2 11/28/16 14:32 39.4 133 20 136/90 93 Nasal Cannula 11/27/16 16:59 2.00 Intake and Output 11/27/16 11/27/16 11/28/16 Cumulative From/Thru 14:59 22:59 06:59 11/21/16 09:06 - 11/28/16 06:43 Intake Total 1650 ml 1374 ml 2805 ml 5829 ml Output Total 320 ml 1000 ml 2350 ml 3670 ml Balance 1330 ml 374 ml 455 ml 2159 ml Intake Oral 1374 ml 1560 ml 2934 ml IV Total 1650 ml 1245 ml 2895 ml Output Urine Total 220 ml 1000 ml 2350 ml 3570 ml Stool Total 0 ml 0 ml Estimated Blood Loss 100 ml 100 ml Additional Information: General: No acute distress, well-developed, well-nourished, appropriately interactive HEENT: Normocephalic, atraumatic. External ears without defect. Pupils equal, round, and reactive to light and accommodation. Anicteric sclerae, moist conjunctivae, and no lid lag. Oropharynx free of erythema and cobble stoning with moist mucosa. Neck: Supple with full range of motion. Positive for jugular venous distension. No lymphadenopathy or thyromegaly. Cardiovascular: Regular rhythm, tachycardic rate in the 150s, with no murmurs, rubs, or gallops appreciated. Pulses on palpation felt regular. Pulmonary: Clear to auscultation bilaterally with no crackles, wheezes, or rhonchi. Normal respiratory effort with no use of accessory muscles. Abdomen: Bowel tones present. Soft. Distended. Tender to palpation. Hyperresonant on percussion. Colostomy bag in place in the left lower quadrant. Extremities: No clubbing, cyanosis, edema, or lymphadenopathy appreciated. Skin: Warm temperature, normal turgor, and texture; no rash, ulcers, or subcutaneous nodules appreciated. Neurological: Cranial nerves grossly intact. Normal muscle strength, tone, and bulk. Reflexes, coordination, and sensory function within normal limits. No known gait impairment. Psychiatric: Normal mood and affect. Alert and oriented to person, place, and time. Lab and Diagnostics Result Diagram: 11/28/16 1630 11/28/16 0535 X-Rays, CTs and MRIs CT CHEST, ABDOMEN AND PELVIS [facility] CONTRAST IMPRESSION: 1. Postsurgical changes consistent with interval partial colectomy with a diverting left lower quadrant colostomy. Small amount of free fluid is demonstrated in the abdomen and pelvis without a definite rim-enhancing collection to suggest an abscess. 2. Bibasilar atelectasis in the lungs. 3. Scattered bowel air-fluid levels compatible with postoperative ileus 4. Multiple pulmonary nodules and hepatic mass lesions redemonstrated compatible with metastatic disease. Dictated by: Daniel Myrick M.D. on 11/28/2016 at 16:40 Assessment & Plan Assessment Gerardo Cabrales is a 56 year old man with past medical history significant for hypertension, anxiety/mood disorder with recent diagnosis of colon cancer with likely liver metastases who presented to [facility] for a scheduled Laparoscopic liver biopsy, laparoscopic assisted low anterior resection with end descending colostomy. The hospitalist team invited for consultation due to the patient's elevated temperature, sinus tachycardia and relative hypotension which is suggestive of occult infection. # Severe sepsis, not present on admission, active -source likely postop intraabdominal infection -SIRS criteria: Tachycardia, fever with likely source abdominal infection -Patient will be fluid resuscitated with 3 L of normal saline and reassessed. -Stat CT chest abdomen pelvis was performed to evaluate for possible abdominal bleed. This was not demonstrated. -Lactic acid remains normal. -Antibiotics with Flagyl and Levaquin. Patient is allergic to penicillins as we will not be using Zosyn. -Blood Cultures were obtained. -Telemetry monitoring # Adenocarcinoma of the colon with liver metastases, status post laparoscopic liver biopsy, microscopic assisted low anterior resection with end descending colostomy. -Surgical team to manage # Hypertension -Hold antihypertensives at this time due to patient's relative hypotension and sepsis. dvt prophylaxis per surgery Thank you for allowing us to participate in the care of this patient, will follow along with you. Problems: VTE Mechanical Devices: Intermittant Pneumatic CD Resuscitation Status: CPR: Attempt Resuscitation Attending Statement Patient seen and examined with resident , I agree with history, exam, assessment and plan as outlined above Eileen Martinez DO Nov 28, 2016 17:16 Tristen Cramer MD Nov 29, 2016 07:04
[2016-11-28 18:48] LABS: TROPONIN T < 0.010 ug/L (0.0-0.011)
--- NOTE | 2016-11-28 18:55 | NUR ---
Transfer To PCC room 2001 via bed at 18:15. Sister aware and at bedside. Report given to Eloisa Bui.
[2016-11-28] MEDS ORDERED: metroNIDAZOLE Inj 1,000 MG in IV Premix 1 EACH IV SCH (20:30)
[2016-11-29] VITALS (9 sets, daily range): BP systolic 121–139; BP diastolic 70–79; PULSE 104–139; RESP 16–26; O2SAT 92–96
[2016-11-29] MEDS: Acetaminophen IV 1,000 MG in IV Premix 1 EACH IV SCH ×4 (02:27→16:51)
[2016-11-29] MEDS: 0.9% Sodium Chloride 1,000 ML IV SCH ×4 (02:27→20:14)
[2016-11-29 03:20] LABS: BASOPHILS % (AUTO) 0.2 % (0-3); EOSINOPHILS % (AUTO) 0 % (0-5); MONOCYTES % (AUTO) 9.7 % (4-12); Mean Corpuscular Hemoglobin 26.6 pg (27.0-35.0); Mean Corpuscular Volume 81.9 fL (81-100); NEUTROPHILS % (AUTO) 85.5 % (40-74); Platelet Count 339 bil/L (150-400)
[2016-11-29 03:55] LABS: Magnesium 1.6 mg/dL (1.6-2.6); Phosphorus 3.1 mg/dL (2.5-4.9)
[2016-11-29] MEDS: metroNIDAZOLE Inj 1,000 MG in IV Premix 1 EACH IV SCH ×3 (05:24→16:52)
--- NOTE | 2016-11-29 05:49 | NUR ---
HR Patient HR tachy through out shift, mid 100's, BP unremarkable, low grade fever. Patient drowsy but easily aroused. discussed GREEN FEED ATTENDANT efficiency, patient states that he is pleased with GREEN FEED ATTENDANT at this time. will continue to monitor.
[2016-11-29] MEDS ORDERED: levoFLOXacin Inj 750 MG in IV Premix 1 EACH IV SCH (08:30)
[2016-11-29] MEDS: BusPIRone 15 mg Dividose Tablet PO SCH ×2 (08:30→20:30)
[2016-11-29] MEDS: Pantoprazole 40 mg ER24 Tablet PO SCH (08:30)
[2016-11-29] MEDS: levoFLOXacin Inj 750 MG in IV Premix 1 EACH IV SCH (09:06)
[2016-11-29] MEDS: HYDROmorphone PCA 0.2 mg/mL 30 mL Inj IV PRN ×2 (10:13→23:46)
--- NOTE | 2016-11-29 11:01 | PROG NOTE ---
[address] [address] PROGRESS NOTE PATIENT: NIYAH ROME : 1960 MR#: [id number] ADMIT: 11/27/2016 JOB ID: [id number] DATE: 11/29/2016 SUBJECTIVE: The patient is seen in followup. Because of high fevers yesterday and tachycardia, he was transferred to the PCC unit. A CT scan of the chest, abdomen and pelvis was obtained with contrast. There was bibasilar atelectasis, but no evidence of pulmonary embolus, although it was not a pulmonary angiogram study. There was a small amount of free fluid in the pelvis which was not rim enhancing and not particularly suggestive of abscess. Today he is complaining of mild nausea. His abdominal pain is fairly manageable at rest but he is afraid to move and has a lot of abdominal pain in the right lower quadrant with any movement. He is not complaining of shortness of breath, chest pain, cough, and is not complaining of any pain in his legs. OBJECTIVE: Temperature 38.9, pulse 125, blood pressure 129/78, saturation 94% on 2 liters. General: He is diaphoretic, mildly uncomfortable appearing. Neck: Trachea is midline. No jugular venous distention. Chest is clear with no wheezes. Heart: Tachycardia, no murmurs. Abdomen is distended. He has fairly severe tenderness to palpation in the right lower quadrant with guarding. His incisions are clean with no erythema. His colostomy is fairly dusky but otherwise intact. Banda catheter has clear yellow urine, urine output yesterday was 3225, and 900 cc overnight. Extremities: No peripheral edema, no calf tenderness, SCDs are in place. LABORATORIES: White count is 14.8, hematocrit 34.5, platelets 339. Differential includes 85% polys, no bands. Creatinine 0.77. Glucose 114. Albumin 3.5. Procalcitonin 0.68. 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 He does have evidence of sepsis based on fever, tachycardia, rising procalcitonin, although the source of sepsis is not clear. He does have this relatively small and ill-defined fluid collection in the right pelvis which could ultimately evolve to an abscess. It is too early to consider drainage or aspiration of that fluid and so if he continues on this course, I would repeat imaging in 48 hours to look for drainability of that fluid collection. He has been placed on broad-spectrum antibiotics which is appropriate. Banda catheter should be continued for now to help monitor his fluid status. He is on scheduled Tylenol and we will add Toradol for his pain. His pain control needs to be good enough that he can get up on his feet and ambulate. His colostomy is dusky and we will need to monitor that while it declares itself. Most likely, it will be fine with no need for re-intervention.
[2016-11-29] MEDS: Polyethylene Glycol (PEG) 17 Gm Powder PO SCH (12:41)
--- NOTE | 2016-11-29 13:53 | PCM.PNMED ---
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, pain is controlled, denied cough, sputum, sore throat, burning on urination received one dose of Levaquin and 3doses of Flagyl until AM pt had severe allergic reaction to amoxicillin, Cefaclor, "couldn't breath with hives all over" Exam Vital Signs Vital Sign - Last Date Time Temp Pulse Resp B/P Pulse Ox O2 Delivery O2 Flow Rate FiO2 11/29/16 06:59 114 11/29/16 03:04 Supplement Oxygen 11/29/16 03:00 26 93 11/29/16 03:00 39.2 126/71 2.00 Intake and Output 11/28/16 11/28/16 11/29/16 Cumulative From/Thru 15:00 23:00 07:00 11/21/16 09:06 - 11/29/16 06:05 Intake Total 3723 ml 1795 ml 82721 ml Output Total 875 ml 900 ml 5445 ml Balance 2848 ml 895 ml 5902 ml Intake Oral 1135 ml 20 ml 4089 ml IV Total 2588 ml 1775 ml 7258 ml Output Urine Total 875 ml 900 ml 5345 ml Stool Total 0 ml Estimated Blood Loss 100 ml Exam distressed due to pain no JVD, MMM, no LAD regular tachy, nl s1, s2 no mrg CTAB, no w,c S,distended abdomen, tender throughout more on RLQ, colostomy bag in place, no guarding warm, no edema, pulses 2/2 IVs and Medications Medications Reviewed: Medications were reviewed in detail Lab and Diagnostics Result Diagram: 11/29/16 0300 11/29/16 0300 Assessment & Plan Gerardo Cabrales is a 56 year old man with past medical history significant for hypertension, anxiety/mood disorder with recent diagnosis of colon cancer with likely liver metastases who presented to [facility] for a scheduled Laparoscopic liver biopsy, laparoscopic assisted low anterior resection with end descending colostomy. The hospitalist team invited for consultation due to the patient's elevated temperature, sinus tachycardia and relative hypotension which is suggestive of occult infection. # Severe sepsis, developed post-op, source likely postop intraabdominal infection. SIRS criteria: Tachycardia, fever with likely source abdominal infection. Patient received 3 L of normal saline. Stat CT chest abdomen pelvis showed free flowing fluid and post surgical chg, no abscess. -Today tachycardia mildly improved after fluid resuscitation, HD stable, remains febrile, it seems that pt is clinically not improving and current tx may not work well, please consider to repeat images or surgical intervention. -continue Antibiotics with Flagyl and Levaquin, this will cover broadly anaerobes and gram negatives, Patient is allergic to penicillins, cephalosporin. will get MRSA swab, consider add vancomycin. -awaits blood culture -continue Telemetry monitoring -target MAP>65 bolus as needed, given no underling CHF, aggressive fluid resuscitation needed. # Adenocarcinoma of the colon with liver metastases, status post laparoscopic liver biopsy, microscopic assisted low anterior resection with end descending colostomy. -Surgical team to manage # Hypertension -Hold antihypertensives at this time due to patient's relative hypotension and sepsis. dvt prophylaxis per surgery Thank you for allowing us to participate in the care of this patient, will follow along with you. VTE Mechanical Devices: Intermittant Pneumatic CD Resuscitation Status: CPR: Attempt Resuscitation Time spent 35min Smiley Carrillo MD Nov 29, 2016 07:45
--- NOTE | 2016-11-29 15:01 | NUR ---
Social Work: Initial Assessment/Multidisciplinary Rounds D: Per EMR review, pt is a 56 year old male admitted for Signoid Colon Cancer. Pt is [employer] insurance; pt has no LTC insurance, [place] benefits. PCP is Meredith Bush MD. NOK is Feli Cabrales, sister, . Advanced directives not completed-information provided by DRAFTER CHIEF DESIGN. Readmit score is high, 4/8. Pt discussed in am rounds. pt is not medically stable and on day 2 of stay. 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 Pt has an ostemy which he manages at home. DRAFTER CHIEF DESIGN met with the patient at bedside. Sw role explained, contact info and d/c planning checklist provided. Pt lives in [place] with his elderly parents. Pt is I at baseline, uses no DME and is I with ADLs. Pt states he has never had HH or skilled rehab. Home is a single story home with ramp access. Pt assists parents with basic chores and things around the house but states he does not complete ADLs for them. A: Pt who is I at baseline. P: Evolving; DRAFTER CHIEF DESIGN to continue to follow pt's clinical course and assist with safe discharge planning pending orders from . MIRYAM Milligan Addendum: 11/29/16 at 1507 by ADRIANNA LOWRY SS Amended: Links added.
[2016-11-29 16:46] LABS: APPEARANCE,URINE CLEAR (CLEAR,HAZY); COLOR,URINE DARK YELLOW (YELLOW); PH,URINE 5.5 (5.0-8.0)
[2016-11-29 16:47] LABS: OCCULT BLOOD,URINE SMALL (NEGATIVE); UROBILINOGEN,URINE NORMAL (NORMAL)
[2016-11-29 17:49] LABS: BASOPHILS % (AUTO) 0.2 % (0-3); EOSINOPHILS % (AUTO) 0.3 % (0-5); MONOCYTES % (AUTO) 8.4 % (4-12); Mean Corpuscular Hemoglobin 26.8 pg (27.0-35.0); Mean Corpuscular Volume 82.8 fL (81-100); NEUTROPHILS % (AUTO) 86.1 % (40-74); Platelet Count 285 bil/L (150-400)
--- NOTE | 2016-11-29 17:58 | NUR ---
Pain/Ostomy The pt continues with the LAND SURVEY TECHNICIAN dilaudid pump today with good pain management. Overall, the pt reported numerous times that he is "feeling so much better than yesterday". Fevers continue, but are trending down. The pt's ostomy site continues to be dark red with some red drainage. Stool is beginning to collect at the stoma. MD is aware of the tissue color. The POC is to continue with IV fluids and ABX for sepsis. Physical Therapy will see and evaluate the pt tomorrow.
[2016-11-29 18:25] LABS: Magnesium 1.9 mg/dL (1.6-2.6); Phosphorus 2.8 mg/dL (2.5-4.9)
--- NOTE | 2016-11-29 22:29 | DRSVH ---
PROCEDURE: US VENOUS LEG DUPLEX BILATERAL INDICATIONS: Rule out DVT in patient with tachycardia and fever TECHNIQUE: Real-time imaging, as well as color and pulse Doppler interrogation, were performed of the deep veins of both legs from the inguinal ligament to the popliteal fossa. COMPARISON: None. FINDINGS: The deep veins are normally compressible, and free of intraluminal thrombus. Color and pu lse Doppler demonstrate normal phasic intravascular flow. There is normal augmentation response to d istal compression maneuver. IMPRESSION: No evidence for deep venous thrombosis is found in the right lower extremity with this d uplex venous Doppler study. No evidence for deep venous thrombosis is found in the left lower extremity with this duplex venous D oppler study. Dictated by: Ellis Norton M.D. on 11/29/2016 at 22:27 Approved by: Ellis Norton M.D. on 11/29/2016 at 22:27
[2016-11-29] MEDS: MetoCLOpramide 5 mg/mL 2 mL Inj IVPUSH PRN (23:47)
[2016-11-30] VITALS (12 sets, daily range): BP systolic 127–147; BP diastolic 75–88; PULSE 95–115; RESP 15–20; O2SAT 92–98
[2016-11-30] MEDS: Acetaminophen IV 1,000 MG in IV Premix 1 EACH IV SCH ×3 (00:01→10:16)
[2016-11-30] MEDS: metroNIDAZOLE Inj 1,000 MG in IV Premix 1 EACH IV SCH ×5 (00:03→23:20)
[2016-11-30 03:32] LABS: BASOPHILS % (AUTO) 0 % (0-3); EOSINOPHILS % (AUTO) 0 % (0-5); MONOCYTES % (AUTO) 4 % (4-12); Mean Corpuscular Hemoglobin 26.3 pg (27.0-35.0); Mean Corpuscular Volume 84 fL (81-100); NEUTROPHILS % (AUTO) 93 % (40-74); Platelet Count 346 bil/L (150-400)
[2016-11-30 04:01] LABS: Phosphorus 3.5 mg/dL (2.5-4.9)
[2016-11-30] MEDS: 0.9% Sodium Chloride 1,000 ML IV SCH ×3 (04:01→20:28)
[2016-11-30] MEDS: MetoCLOpramide 5 mg/mL 2 mL Inj IVPUSH PRN ×2 (04:02→21:22)
--- NOTE | 2016-11-30 06:25 | NUR ---
Activity/Colostomy/Pain/Nausea-Vomiting Pt had full bed change and was able to easily roll from side to side with very little pain. Pt later asked to be sat up on the side of the bed and pt tolerated this activity well. Once pt was dangling on side of bed pt was able to belch and and pass gas which the pt said helped him with his nausea that he has been having throughout the entire shift. Pt noticed, while sitting up, that his colostomy bag had expanded and was not sticking out. Pt was shown how to empty colostomy and taught how he can take care of emptying his colostomy on his own. Pt was encouraged to return demonstrate with the dayshift RN. Pt's pain at the end of the shift was 3/10. 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 Pt's nausea was partially relieved with 10mg Reglan but was not relieved by 4mg Zofran. At beginning of shift pt did have 200cc greenish-brown emesis. Since pt was able to belch and pass gas while dangling pt said that his nausea was relieved.
[2016-11-30] MEDS: levoFLOXacin Inj 750 MG in IV Premix 1 EACH IV SCH (08:44)
[2016-11-30] MEDS: Pantoprazole 40 mg ER24 Tablet PO SCH (08:46)
[2016-11-30] MEDS: BusPIRone 15 mg Dividose Tablet PO SCH ×2 (08:46→21:19)
[2016-11-30] MEDS ORDERED: HYDROmorphone 1 mg/mL Inj IVPUSH PRN (08:50)
--- NOTE | 2016-11-30 10:00 | PROG NOTE ---
[address] [address] PROGRESS NOTE PATIENT: GERARDO ROME : 1960 MR#: [id number] ADMIT: 11/27/2016 JOB ID: [id number] DATE: 11/30/2016 SUBJECTIVE: Gerardo is seen in followup. He is feeling better. His fever curve has finally tapered off, and he has been afebrile since his last fever yesterday evening at 8 p.m. He has no nausea. He is passing flatus and stool into his colostomy. He did have some vomiting yesterday, but now feels much better from that standpoint. His Banda catheter was removed yesterday, and he is urinating without difficulty at this point. OBJECTIVE: Temperature 36.6, pulse 98, blood pressure 127/75, saturation 98% on 1 L. General, he is sitting up in bed in no acute distress. Chest: He has good air movement with some diminished breath sounds at both bases. Heart regular rate and rhythm, no murmurs. Abdomen is mildly distended but soft, minimally tender to palpation. The colostomy has brown stool in the appliance. There is no erythema of his incisions. LABORATORIES: White count is 18.8, hematocrit 33.7, platelets 346. Creatinine 0.81. Glucose 148. Procalcitonin 0.61. ASSESSMENT AND PLAN: A 56-year-old man with metastatic sigmoid colon cancer, postoperative day 3, status post low anterior resection with end colostomy and liver biopsy. His initial course was complicated by fevers and tachycardia with no clear infectious source. He appears to be improving. Recommend continuing antibiotics. DVT study yesterday was negative. His diet can be slowly advanced. We will put him on oral pain medications today. IV Tylenol should be continued. He understands that there is a possibility that his pelvic fluid collection evolves and becomes an abscess, but for right now I see no indication that there is an intra-abdominal infection.
--- NOTE | 2016-11-30 11:00 | NUR ---
Activity Patient able to stand up, use urinal, and walk with PT. Tolerated well. Per PT, needs SBA for IV assistance and slightly unsteady when ambulating. Patient denied pain.
[2016-11-30] MEDS: Polyethylene Glycol (PEG) 17 Gm Powder PO SCH (11:55)
--- NOTE | 2016-11-30 11:58 | PCM.PNMED ---
Subjective Date of Service Nov 30, 2016 Subjective pt is clinically much improved, less tachycardic, no fever since 9pm 11/29 Exam Vital Signs Vital Sign - Last Date Time Temp Pulse Resp B/P Pulse Ox O2 Delivery O2 Flow Rate FiO2 11/30/16 11:50 36.8 107 20 144/79 96 Room Air 11/30/16 08:50 1.00 Intake and Output 11/29/16 11/29/16 11/30/16 Cumulative From/Thru 15:00 23:00 07:00 11/21/16 09:06 - 11/30/16 06:36 Intake Total 3388 ml 3608 ml 11445 ml Output Total 250 ml 250 ml 5945 ml Balance 3138 ml 3358 ml 00187 ml Intake Oral 1533 ml 400 ml 6022 ml IV Total 1855 ml 3208 ml 91954 ml Output Urine Total 250 ml 5595 ml Stool Total 50 ml 50 ml Emesis 200 ml 200 ml Estimated Blood Loss 100 ml # Voids 2 2 Exam distressed due to pain no JVD, MMM, no LAD regular tachy, nl s1, s2 no mrg CTAB, no w,c S,distended abdomen, tender throughout more on RLQ, colostomy bag in place, no guarding warm, no edema, pulses 2/2 IVs and Medications Medications Reviewed: Medications were reviewed in detail Lab and Diagnostics Result Diagram: 11/30/1624411/30/16244 Assessment & Plan Gerardo Cabrales is a 56 year old man with past medical history significant for hypertension, anxiety/mood disorder with recent diagnosis of colon cancer with likely liver metastases who presented to [facility] for a scheduled Laparoscopic liver biopsy, laparoscopic assisted low anterior resection with end descending colostomy. The hospitalist team invited for consultation due to the patient's elevated temperature, sinus tachycardia and relative hypotension which is suggestive of occult infection. # Severe sepsis, developed post-op, source likely postop intraabdominal infection. SIRS criteria: Tachycardia, fever with likely source abdominal infection. Patient received 3 L of normal saline. Stat CT chest abdomen pelvis showed free flowing fluid and post surgical chg, no abscess. -pt is HD more stable, less tachycardic, fever trend is also better, given improvement with medical tx, will monitor for now with current tx, possible repeat CT abd per surgery if clinically worsens -will continue Antibiotics with Flagyl and Levaquin, this will cover broadly anaerobes and gram negatives, Patient is allergic to penicillins, cephalosporin -awaits blood culture, ngtd -continue Telemetry monitoring -target MAP>65 bolus as needed, given no underling CHF, aggressive fluid resuscitation needed. # Adenocarcinoma of the colon with liver metastases, status post laparoscopic liver biopsy, microscopic assisted low anterior resection with end descending colostomy. -Surgical team to manage # Hypertension -Hold antihypertensives at this time due to patient's relative hypotension and sepsis. dvt prophylaxis per surgery Thank you for allowing us to participate in the care of this patient, will follow along with you. VTE Mechanical Devices: Intermittant Pneumatic CD Resuscitation Status: CPR: Attempt Resuscitation Time spent 35min Smiley Carrillo MD Nov 30, 2016 11:57
--- NOTE | 2016-11-30 14:39 | NUR ---
Social Work: Multidisciplinary Rounds Pt discussed in am rounds. Pt is not medically stable for discharge at this time. Sw status remains unchanged; anticipate discharge back home once medically stable. WAREHOUSE MAN to continue to follow to assess for needs. MIRYAM Milligan
--- NOTE | 2016-11-30 23:41 | NUR ---
chest pain pt c/o mild chest pain, right in the center of his chest that he described as an ache. VS WNL. no complaints of SOB. MD was notified and EKG was ordered. EKG showed no acute findings, it was discussed with MD. no new orders at this time. pt has been sleeping, appearing comfortable.
[2016-12-01] VITALS (7 sets, daily range): BP systolic 122–142; BP diastolic 77–83; PULSE 91–99; RESP 16–20; O2SAT 92–98
[2016-12-01 03:14] LABS: BASOPHILS % (AUTO) 0.2 % (0-3); EOSINOPHILS % (AUTO) 3.8 % (0-5); MONOCYTES % (AUTO) 6.6 % (4-12); Mean Corpuscular Hemoglobin 26.5 pg (27.0-35.0); Mean Corpuscular Volume 83.5 fL (81-100); NEUTROPHILS % (AUTO) 81.4 % (40-74); Platelet Count 318 bil/L (150-400)
[2016-12-01 04:05] LABS: Magnesium 1.8 mg/dL (1.6-2.6); Phosphorus 3.9 mg/dL (2.5-4.9)
[2016-12-01] MEDS: 0.9% Sodium Chloride 1,000 ML IV SCH (05:16)
[2016-12-01] MEDS: metroNIDAZOLE Inj 1,000 MG in IV Premix 1 EACH IV SCH ×4 (05:17→23:06)
[2016-12-01] MEDS ORDERED: Alum-Mag Hydrox-Simeth 30 mL Suspension PO PRN (07:10)
[2016-12-01] MEDS: levoFLOXacin Inj 750 MG in IV Premix 1 EACH IV SCH (09:22)
[2016-12-01] MEDS: Pantoprazole 40 mg ER24 Tablet PO SCH (09:23)
[2016-12-01] MEDS: BusPIRone 15 mg Dividose Tablet PO SCH ×2 (09:23→20:23)
--- NOTE | 2016-12-01 09:46 | PROG NOTE ---
[address] [address] PROGRESS NOTE PATIENT: NIYAH ROME : 1960 MR#: [id number] ADMIT: 11/27/2016 JOB ID: [id number] DATE: 12/01/2016 SUBJECTIVE: The patient is seen in followup. He feels pretty good this morning. He did have some vomiting, which came on suddenly yesterday with dinner, but then had no nausea overnight. He was able to ambulate around the halls yesterday independently. OBJECTIVE: Temperature 37.3, pulse 99, blood pressure 127/83, saturation 92% on room air. In general, he is resting in bed in no acute distress. Chest is clear. Heart regular rate and rhythm, no murmurs. Abdomen is soft, mildly distended. His incisions are clean with no erythema. His colostomy has soft brown stool in the appliance. Bowel tones are present. He is minimally tender to palpation. LABORATORIES: White count is 10.3, hematocrit 27.4, platelets 318. Creatinine 0.74. Glucose 104. Procalcitonin 0.50. Urine culture shows no growth. ASSESSMENT AND PLAN: A 56-year-old man postoperative day four status post low anterior resection with descending colostomy and liver biopsy for metastatic rectosigmoid colon cancer. He is improving. Antibiotics will be continued, although it is not clear if he has a true infection or if he just had a profound inflammatory response following his surgery. He will continue on a soft diet. His IV will be discontinued today. The tentative plan will be for discharge from the hospital tomorrow.
--- NOTE | 2016-12-01 10:45 | NUR ---
Social Work: Multidisciplinary Rounds Pt was discussed in AM rounds. Per MD pt is not medically ready for discharge at this time. MD is r/o possible post op infection and pt is currently on IV abx. SW to continue to follow for pt needs and MD orders if appropriate. Anticipated discharge home when medically ready. MIRYAM Robertson
[2016-12-01] MEDS: Polyethylene Glycol (PEG) 17 Gm Powder PO SCH (11:13)
--- NOTE | 2016-12-01 13:26 | PCM.PNMED ---
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 Exam Vital Signs Vital Sign - Last Date Time Temp Pulse Resp B/P Pulse Ox O2 Delivery O2 Flow Rate FiO2 12/01/16 10:35 96 12/01/16 09:08 36.8 18 127/77 95 Room Air 11/30/16 08:50 1.00 Intake and Output 11/30/16 11/30/16 12/01/16 Cumulative From/Thru 15:00 23:00 07:00 11/21/16 09:06 - 12/01/16 06:00 Intake Total 240 ml 1574 ml 1625 ml 60075 ml Output Total 550 ml 1425 ml 700 ml 8620 ml Balance -310 ml 149 ml 925 ml 08242 ml Intake Oral 240 ml 540 ml 600 ml 7402 ml IV Total 1034 ml 1025 ml 50833 ml Output Urine Total 550 ml 875 ml 500 ml 7520 ml Stool Total 550 ml 100 ml 700 ml Emesis 100 ml 300 ml Estimated Blood Loss 100 ml # Voids 1 3 # Bowel Movements 1 1 Exam NAD, comfortable, no JVD, MMM, no LAD regular tachy, nl s1, s2 no mrg CTAB, no w,c S,distended abdomen, mildly tender, colostomy bag in place, no guarding warm, no edema, pulses 2/2 IVs and Medications Medications Reviewed: Medications were reviewed in detail Lab and Diagnostics Result Diagram: 12/01/16 0250 12/01/16 0250 Assessment & Plan Gerardo Cabrales is a 56 year old man with past medical history significant for hypertension, anxiety/mood disorder with recent diagnosis of colon cancer with likely liver metastases who presented to [facility] for a scheduled Laparoscopic liver biopsy, laparoscopic assisted low anterior resection with end descending colostomy. The hospitalist team invited for consultation due to the patient's elevated temperature, sinus tachycardia and relative hypotension which is suggestive of occult infection. # Severe sepsis, developed post-op, source likely postop intraabdominal infection. SIRS criteria: Tachycardia, fever with likely source abdominal infection. Patient received 3 L of normal saline. Stat CT chest abdomen pelvis showed free flowing fluid and post surgical chg, no abscess. -pt is clinically much improved with current tx, continue Antibiotics with Flagyl and Levaquin, Patient is allergic to penicillins, cephalosporin, -Please consider to finish 14days of course with PO abx flagyl 500mg bid and Levaquin 750mg daily as pt tolerated well, if not contraindicated post-op course. -awaits blood culture, ngtd # Adenocarcinoma of the colon with liver metastases, status post laparoscopic liver biopsy, microscopic assisted low anterior resection with end descending colostomy. -Surgical team to manage # Hypertension -Hold antihypertensives at this time due to patient's relative hypotension and sepsis. dvt prophylaxis per surgery Hospitalist service will continue to follow up until the day of discharge. VTE Mechanical Devices: Intermittant Pneumatic CD Resuscitation Status: CPR: Attempt Resuscitation Time spent 35min Smiley Carrillo MD Dec 01, 2016 10:52
--- NOTE | 2016-12-01 17:18 | NUR ---
Pain/Mobility/POC The pt reported no pain today, aside from abdominal pain when laughing. IV and PO meds are still being utilized per post surgical protocol. The pt was independent in the room today, and spent ample time ambulating around the room with no pain or discomfort. The POC is to DC the pt home - potentially tomorrow.
[2016-12-02 02:42] LABS: BASOPHILS % (AUTO) 0.3 % (0-3); EOSINOPHILS % (AUTO) 9.2 % (0-5); MONOCYTES % (AUTO) 6.5 % (4-12); Mean Corpuscular Hemoglobin 26.2 pg (27.0-35.0); Mean Corpuscular Volume 80.5 fL (81-100); NEUTROPHILS % (AUTO) 70.3 % (40-74); Platelet Count 324 bil/L (150-400)
--- NOTE | 2016-12-02 02:59 | NUR ---
Lab H&H trending down, 8.[address] Bacon notified, order rec'd for [facility]. Addendum: 12/02/16 at 0539 by AMOR DIOR RN Pain adequately controlled tonight per pt. Sinus tach 96 bpm. Colostomy producing brown liquid stool, guiac pending. Lap sites approximated, no drainage/warmth. Midline incision unapproximated, surgeon aware, no erythema/drainage/warmth noted. Pt slept off and on this shift.
[2016-12-02 03:19] VITALS: BP 141/87; PULSE 92; RESP 20; O2SAT 94
[2016-12-02] MEDS: metroNIDAZOLE Inj 1,000 MG in IV Premix 1 EACH IV SCH ×2 (04:59→11:22)
[2016-12-02 08:19] VITALS: BP 118/81; PULSE 85; RESP 18; O2SAT 96
[2016-12-02] MEDS: levoFLOXacin Inj 750 MG in IV Premix 1 EACH IV SCH (08:21)
[2016-12-02] MEDS: Pantoprazole 40 mg ER24 Tablet PO SCH (08:22)
[2016-12-02] MEDS: BusPIRone 15 mg Dividose Tablet PO SCH (08:22)
--- NOTE | 2016-12-02 08:23 | PROG NOTE ---
[address] [address] PROGRESS NOTE PATIENT: GERARDO ROME : 1960 MR#: [id number] ADMIT: 11/27/2016 JOB ID: [id number] DATE: 12/02/2016 SUBJECTIVE: Gerardo is seen in followup. He feels good today. Generally he feels good enough to go home, but he is not sure if his family is ready for him to be home yet. He has no nausea. He is eating better. He has very little abdominal pain. He is voiding without difficulty. Yesterday, he spent most of the day up in a chair and was able to ambulate around the halls. OBJECTIVE: Temperature 37.1, pulse 92, blood pressure 141/87, saturation 94% on room air. General: He is sitting up in bed, in no acute distress. Chest is clear. Heart regular rate and rhythm, no murmurs. Abdomen is obese, but soft, nondistended. His incisions are clean with no erythema. His colostomy has liquid stool in the appliance. LABORATORIES: White count is 7.0, hematocrit 25.2, platelets 324. Creatinine 0.68. Glucose 96. Procalcitonin is down to 0.31. ASSESSMENT AND PLAN: A 56-year-old man status post low anterior resection and a liver biopsy for metastatic rectosigmoid colon cancer. He is being treated with antibiotics, but I am not sure about any actual source of infection, but because of his fevers and leukocytosis initially, I would complete a seven day course of those. Clinically, I think he is basically ready for discharge from the hospital. I will ask enterostomal therapy to change his colostomy appliance today or at least help do some more colostomy education with him. I think he could probably be discharged from the hospital either later today or at the very least tomorrow. After discharge, he will need follow up in the wound center for colostomy care.
[2016-12-02 11:10] VITALS: PULSE 87
[2016-12-02] MEDS: Polyethylene Glycol (PEG) 17 Gm Powder PO SCH (11:18)
--- NOTE | 2016-12-02 11:41 | PCM.PNMED ---
Subjective Date of Service Dec 02, 2016 Subjective pt remained stable denied abdominal pain, tolerated diet Exam Vital Signs Vital Sign - Last Date Time Temp Pulse Resp B/P Pulse Ox O2 Delivery O2 Flow Rate FiO2 12/02/16 11:10 87 12/02/16 08:26 Supplement Oxygen 12/02/16 08:19 36.8 18 118/81 96 11/30/16 08:50 1.00 Intake and Output 12/01/16 12/01/16 12/02/16 Cumulative From/Thru 15:00 23:00 07:00 11/21/16 09:06 - 12/02/16 06:46 Intake Total 1286 ml 1202 ml 56008 ml Output Total 500 ml 120 ml 9240 ml Balance 786 ml 1082 ml 81879 ml Intake Oral 1286 ml 854 ml 9542 ml IV Total 348 ml 16222 ml Output Urine Total 7520 ml Stool Total 500 ml 120 ml 1320 ml Emesis 300 ml Estimated Blood Loss 100 ml # Voids 5 2 10 # Bowel Movements 1 2 Exam NAD, comfortable, no JVD, MMM, no LAD regular tachy, nl s1, s2 no mrg CTAB, no w,c S,mildly distended abdomen, non tender, colostomy bag in place, no guarding warm, no edema, pulses 2/2 IVs and Medications Medications Reviewed: Medications were reviewed in detail Lab and Diagnostics Result Diagram: 12/02/16 0155 12/02/16 0155 Assessment & Plan Gerardo Cabrales is a 56 year old man with past medical history significant for hypertension, anxiety/mood disorder with recent diagnosis of colon cancer with likely liver metastases who presented to [facility] for a scheduled Laparoscopic liver biopsy, laparoscopic assisted low anterior resection with end descending colostomy. The hospitalist team invited for consultation due to the patient's elevated temperature, sinus tachycardia and relative hypotension which is suggestive of occult infection. # Severe sepsis, developed post-op, source likely postop intraabdominal infection. SIRS criteria: Tachycardia, fever with likely source abdominal infection. Patient received 3 L of normal saline. Stat CT chest abdomen pelvis showed free flowing fluid and post surgical chg, no abscess. -pt is clinically much improved with current tx, continue Antibiotics with Flagyl and Levaquin, Patient is allergic to penicillins, cephalosporin, -Please consider to finish 14days of course with PO abx flagyl 500mg bid and Levaquin 750mg daily as pt tolerated well, if not contraindicated post-op course. -awaits blood culture, ngtd # Adenocarcinoma of the colon with liver metastases, status post laparoscopic liver biopsy, microscopic assisted low anterior resection with end descending colostomy. -Surgical team to manage -follow up with wound care center # Hypertension -Hold antihypertensives at this time due to patient's relative hypotension and sepsis. dvt prophylaxis per surgery Thank you for allowing us to involve in patient's care. Hospitalist service will sign off today, Please feel free to contact if you have any questions. VTE Mechanical Devices: Intermittant Pneumatic CD Resuscitation Status: CPR: Attempt Resuscitation Time spent 35min Smiley Carrillo MD Dec 02, 2016 11:25
[2016-12-02 12:22] VITALS: BP 124/77; PULSE 84; RESP 18; O2SAT 99
--- NOTE | 2016-12-02 13:11 | NUR ---
NUTRITION FOLLOW-UP: ASSESS: 56YO M admit with colon CA, mets to liver now s/p colostomy and lower anterior resection. He is tolerating a soft diet well at 75-100% of meals. No reported n/v/abd pain. 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 Will stop Impact tomorrow as it is recommended to drink it x5 days post-op. MONITOR/EVALUATE: PO, d/c supps, GI, wt, labs, POC, nutrition status. Will continue to monitor per moderate nutrition risk guidelines.
--- NOTE | 2016-12-02 15:05 | PCM.DISURG ---
Surgical Discharge Instruction Date of Service Dec 02, 2016 Dates of Hospitalization Date of Hospital Admission Nov 27, 2016 at 12:54 Providers Admitting Physician: Dashawn Jean MD Primary Care Physician: Meredith Bush MD Attending Physician: Smiley Carrillo MD Discharge Diagnosis Discharge Diagnosis Primary diagnoses: Metastatic sigmoid colon cancer Other chronic conditions: 1. Varicose veins 2. Peyronie's disease 3. Obesity, BMI 36.3 4. Irritable bowel disease 5. Hypertension 6. Fever and asthma 7. Generalized anxiety disorder 8. GERD 9. Erectile dysfunction 10. Chronic sinusitis 11. Benign liver hemangiomas 12. Former cigarette smoker Post Operative diagnosis Same Diet Discharge Diet: No restrictions Activity Discharge Activity-General: Balance rest and activity, No lifting >15 pounds for 2 weeks, No driving while taking narcotic Dressing and Incisional Care Hygiene: May shower Additional Instructions Discharge Instructions Follow-up in the wound center in 3-5 days. Follow Up Plan Follow-up Provider (F9): Dashawn Jean MD Follow-up appointment: Weeks (1) Call your provider for: Fever, Chills, Increasing abdominal pain, Nausea, Vomiting, Wound redness, Increasing wound pain, Warmth to touch, Discharge @ incision, pus discharge Ruddy Bolden PA-C Dec 02, 2016 15:05
[2016-12-02] MEDS ORDERED: LEVO750T39 PO (15:13)
[2016-12-02] MEDS ORDERED: METR500T PO (15:13)
[2016-12-02] MEDS ORDERED: ACET325T51 PO (15:13)
[2016-12-02] MEDS ORDERED: POLY17PO6 PO (15:13)
[2016-12-02] MEDS ORDERED: ENOX40DI8 SUBQ (15:13)
[2016-12-02] MEDS ORDERED: ACET1TAB12 PO (15:13)
--- NOTE | 2016-12-02 15:32 | PCM.DC.SUR ---
Discharge Summary Date of Service: Dec 02, 2016 Date of Hospital Admission: Nov 27, 2016 at 12:54 Date of Operation(s): 11/27/2016 Date of Discharge: 12/02/2016 Diagnosis at Time of Discharge Primary diagnoses: 1. Metastatic sigmoid colon cancer 2. Severe sepsis meeting SIRS criteria Other chronic conditions: 1. Varicose veins 2. Peyronie's disease 3. Obesity, BMI 36.3 4. Irritable bowel disease 5. Hypertension 6. Fever and asthma 7. Generalized anxiety disorder 8. GERD 9. Erectile dysfunction 10. Chronic sinusitis 11. Benign liver hemangiomas 12. Former cigarette smoker Problems: Operation 1. Laparoscopic liver biopsy 2. Laparoscopic assisted low anterior resection with end descending colostomy Brief History and Physical: The patient is a 56-year-old man who presented with a change in bowel habits with frequent small bowel movements and abdominal discomfort. He underwent a limited colonoscopy by Dr. Barton which demonstrated a nearly obstructive lesion in the distal sigmoid colon. Measurement from the anal verge was not obtained. Biopsies showed adenocarcinoma. CT scan of the chest, abdomen and pelvis showed almost definite liver metastases and multiple bilateral pulmonary nodules. There was a suspicious pelvic mesenteric mass and enlarged mesocolonic lymph nodes, as well as irregular thickening of the distal sigmoid colon. His preoperative CEA level was 255.1. He underwent preoperative mechanical and antibiotic bowel preparation. He was treated preoperatively with [facility] nutritional protocol. After discussion of risks and benefits, he agreed to proceed with a laparoscopic liver biopsy and low anterior resection with descending colostomy. Serious consideration was not given to primary anastomosis because of his need to promptly be treated with adjuvant chemotherapy after surgery. He was marked preoperatively for descending colostomy. Consultants: Hospitalist Hospital Course: The patient was admitted and underwent the above-mentioned operations without complication. On the afternoon of his first postsurgical day he developed fever and tachycardia, hospitalist was consulted. The patient met SIRS criteria for severe sepsis. Antibiotics were initiated as well as undergoing a septic workup. No source of infection was found. His response was never clearly differentiated between infection versus severe inflammatory response to the stress of surgery. Following this the patient developed nausea with vomiting for several days which eventually resolved with antiemetic medications. Otherwise his recovery was unremarkable. Banda catheter was removed on the patient's second postsurgical day, following this he was able to void without difficulty. Ostomy teaching was accomplished. At the time of discharge the patient was tolerating a solid food diet with no nausea or vomiting, ostomy was functioning, pain was well controlled on oral Tylenol, he was ambulating without assistance, and his wounds appeared to be healing. Pathology: Pending Disposition: The patient was discharged home on his fifth postsurgical day on oral Flagyl and Levaquin as well as subcutaneous Lovenox and Tylenol No. 3 in combination with plain Tylenol for pain. Follow-up Plan: He will follow-up in the office with Dr. Jean in 1 week. He will follow-up in the wound center in 3-5 days. ([magnesium]) 1 TAB PO DAILY (Reported) Acetaminophen (Acetaminophen) 325 Mg Tablet 325-975 MG PO Q6 PRN PRN For Pain Acetaminophen/Codeine 300-30mg (Tylenol/Codeine #3) 1 Each Tablet 1-2 TABLET PO Q4H PRN PRN Pain Amlodipine (Norvasc) 10 Mg Tablet 10 MG PO DAILY (Reported) Buspirone (Buspirone) 15 Mg Tablet 15 MG PO BID (Reported) Calcium Carbonate (Calcium) 600 Mg Tablet 600 MG PO DAILY (Reported) Cetirizine HCl (Zyrtec) 10 Mg Capsule 10 MG PO HS (Reported) Doxepin (Doxepin) 25 Mg Capsule 25 MG PO DAILY-BID (Reported) Enoxaparin Sodium (Enoxaparin Sodium) 40 Mg/0.4 Ml Syringe 40 MG SUBQ Q24H Fluticasone Propionate (Flonase Allergy Relief) 50 Mcg/Actuation [place].susp 2 SPRAYS NS prn (Reported) Hydrochlorothiazide (Hydrochlorothiazide) 25 Mg Tablet 25 MG PO DAILY (Reported ) Ibuprofen (Ibuprofen) 800 Mg Tablet 800 MG PO TID PRN PRN For Pain (Reported) Levofloxacin (Levofloxacin) 750 Mg Tablet 750 MG PO DAILY Lisinopril (Lisinopril) 20 Mg Tablet 20 MG PO DAILY (Reported) Metronidazole (Flagyl) 500 Mg Tablet 500 MG PO Q8H Multivits-Min/FA/Lycopene/Lut (Centrum Silver Tablet) 1 Each Tablet 1 EACH PO DAILY (Reported) Pantoprazole DR (Protonix) 40 Mg Tablet 40 MG PO DAILY (Reported) Polyethylene Glycol 3350 (Miralax) 17 Gm Powd.pack 17 GM PO NOON Potassium Gluconate (Potassium) 99 Mg Tablet 1-2 TAB PO DAILY (Reported) Sildenafil Citrate (Sildenafil) 20 Mg Tablet 20-30 MG PO DAILY PRN PRN PRN ( Reported) copies to: Chelsea Bianchi MD; Meredith Bush MD, Fred H PA-C Dec 02, 2016 15:32
--- NOTE | 2016-12-02 15:38 | NUR ---
Social Work Note: Multidisciplinary Rounds/Discharge Data& Assessment: Pt was discussed in AM rounds, per pt is medically ready to discharge home via POV. Gerardo Cabrales is a 56 year old male admitted on 11/27/2016 for sigmoid colon cancer. Per pt is medically improved and ready to discharge home via POV. Pt transitioned from IV to oral abx. Pt independent at baseline and independent with self care. MD does not identify concerns with pt capacity for self care. Pt sister transporting pt home this afternoon. Pt denies any other needs. No other discharge needs or MD orders identified. Plan: Per pt is medically ready to discharge home via POV. Pt denies any other needs. No other discharge needs or MD orders identified. MIRYAM Robertson
--- NOTE | 2016-12-02 18:14 | NUR ---
Discharge The pt left the unit via wheelchair and SOUND MIXER at 1815 with all his belongings. The pt left with all his belongings and his packet of discharge information. The pt verbalized understanding of all discharge teaching, including colostomy info, new script info and follow up appointment info. The pt is being transported home by his sister in a private vehicle. The pt left the unit A&Ox3 with VSS.
--- NOTE | 2016-12-02 20:12 | PCM.WHCBRP ---
History of Present Illness Date of Service: Dec 02, 2016 Chief Complaint: Colostomy care. History of Present Illness: Patient has been in the hospital since 11/27/2016 when he had a laparoscopic assisted low anterior resection with descending colostomy by Dr. Dashawn Jean. He has history of metastatic sigmoid colon cancer and had severe sepsis with SIRS during hospitalization. The patient is to be discharged from the hospital and wants to have this pouch changed and some teaching before he goes home. Lab Results: Laboratory Tests Test 12/02/16 01:55 White Blood Count 7.0th/mm3 (3.8-10.1) Red Blood Count 3.13mil/mm3 (4.40-5.80) Hemoglobin 8.2g/dL (13.8-17.2) Hematocrit 25.2% (41.0-50.0) Mean Corpuscular Volume 80.5fL (81-100) Mean Corpuscular Hemoglobin 26.2pg (27.0-35.0) Mean Corpuscular Hemoglobin Concent 32.5% (32.0-37.0) Red Cell Distribution Width 14.8% (12.3-15.4) Platelet Count 324bil/L (150-400) Neutrophils (%) (Auto) 70.3% (40-74) Lymphocytes (%) (Auto) 13.4% (14-46) Monocytes (%) (Auto) 6.5% (4-12) Eosinophils (%) (Auto) 9.2% (0-5) Basophils (%) (Auto) 0.3% (0-3) Sodium Level 143mEq/L (134-144) Potassium Level 4.5mEq/L (3.5-5.2) Chloride Level 107mEq/L (97-108) Carbon Dioxide Level 24mmol/L (18-29) Blood Urea Nitrogen 21mg/dL (6-24) Creatinine 0.68mg/dL (0.76-1.27) Estimat Glomerular Filtration Rate 128mL/min (>59) Glucose Level 96mg/dL (60-99) Calcium Level 8.2mg/dL (8.5-10.1) Total Bilirubin 0.2mg/dL (0.0-1.2) Aspartate Amino Transf (AST/SGOT) 22U/L (0-50) Alanine Aminotransferase (ALT/SGPT) 28U/L (0-44) Alkaline Phosphatase 50U/L (25-150) Total Protein 4.7g/dL (6.4-8.4) Albumin 2.7g/dL (3.4-5.0) Procalcitonin 0.31ng/mL (0.00-0.08) Microbiology 11/28/16 Blood Culture - Preliminary, Resulted No growth at 2 days; culture examined... 12/02/16 Stool Occult Blood (RADHA) - Final, Complete 11/29/16 Urine Culture - Final, Complete No growth (<1,000 organisms/mL) Bedside Blood Glucose: 193 Vital Signs: Vital Signs Date Time Temp Pulse Resp B/P Pulse Ox O2 Delivery O2 Flow Rate FiO2 12/02/16 12:22 36.9 84 18 124/77 99 Room Air Pain Additional Information: Patient states his pain is now controlled. Review of Systems 11/27/2016 he had a colectomy with creation of a colostomy by Dr. Dashawn Jean. On his first postoperative day he had severe sepsis and has been on IV antibiotics. Medications Home Medications Reviewed: Reviewed and no changes ([magnesium]) 1 TAB PO DAILY (Reported) Last Taken: Unknown Dose on 11/26/16 09 Acetaminophen (Acetaminophen) 325 Mg Tablet 325-975 MG PO Q6 PRN PRN For Pain Prescribed by: HERNANDEZ ALVA Acetaminophen/Codeine 300-30mg (Tylenol/Codeine #3) 1 Each Tablet 1-2 TABLET PO Q4H PRN PRN Pain Prescribed by: HERNANDEZ ALVA Amlodipine (Norvasc) 10 Mg Tablet 10 MG PO DAILY (Reported) Last Taken: Unknown Dose on 11/26/16 0900 Buspirone (Buspirone) 15 Mg Tablet 15 MG PO BID (Reported) Last Taken: Unknown Dose on 11/26/160 Calcium Carbonate (Calcium) 600 Mg Tablet 600 MG PO DAILY (Reported) Last Taken: Unknown Dose on 11/26/16 09 Cetirizine HCl (Zyrtec) 10 Mg Capsule 10 MG PO HS (Reported) Last Taken: Unknown Dose on 11/26/160 Doxepin (Doxepin) 25 Mg Capsule 25 MG PO DAILY-BID (Reported) Last Taken: Unknown Dose on 7/12/17 2200 Enoxaparin Sodium (Enoxaparin Sodium) 40 Mg/0.4 Ml Syringe 40 MG SUBQ Q24H Prescribed by: HERNANDEZ ALVA Fluticasone Propionate (Flonase Allergy Relief) 50 Mcg/Actuation [place].susp 2 SPRAYS NS prn (Reported) Last Taken: Unknown Dose on 11/20/16 Hydrochlorothiazide (Hydrochlorothiazide ) 25 Mg Tablet 25 MG PO DAILY (Reported) Last Taken: Unknown Dose on 11/25/16 Ibuprofen (Ibuprofen) 800 Mg Tablet 800 MG PO TID PRN PRN For Pain (Reported) Last Taken: Unknown Dose on 11/25/16 Levofloxacin (Levofloxacin) 750 Mg Tablet 750 MG PO DAILY Prescribed by: HERNANDEZ ALVA Lisinopril (Lisinopril) 20 Mg Tablet 20 MG PO DAILY (Reported) Last Taken: Unknown Dose on 11/26/162199 Metronidazole (Flagyl) 500 Mg Tablet 500 MG PO Q8H Prescribed by: HERNANDEZ ALVA Multivits-Min/FA/Lycopene/Lut (Centrum Silver Tablet) 1 Each Tablet 1 EACH PO DAILY (Reported) Last Taken: Unknown Dose on 11/26/[address] (Protonix) 40 Mg Tablet 40 MG PO DAILY (Reported) Last Taken: Unknown Dose on 11/26/16 2200 Polyethylene Glycol 3350 (Miralax) 17 Gm Powd.pack 17 GM PO NOON Prescribed by: HERNANDEZ ALVA Potassium Gluconate (Potassium) 99 Mg Tablet 1-2 TAB PO DAILY (Reported) Last Taken: Unknown Dose on 11/26/16 0900 Sildenafil Citrate (Sildenafil) 20 Mg Tablet 20-30 MG PO DAILY PRN PRN PRN (Reported) Last Taken: Unknown Dose on 11/21/16 Discontinued Medications Omeprazole (Omeprazole) 40 Mg Capsule.dr 40 MG PO DAILY (Reported) Omeprazole Magnesium (Prilosec Otc) 20 Mg Tablet.dr 40 MG PO DAILY (Reported) Allergies Coded Allergies: amoxicillin (Verified Allergy, Severe, BREATHING PROBLEMS, 11/25/16) cefaclor (Verified Allergy, Severe, ABD CRAMPING, 11/25/16) cimetidine (Verified Allergy, Severe, DISORIENTATION, 11/25/16) clavulanic acid (Verified Allergy, Severe, resp. difficulty, 11/25/16) ofloxacin (Verified Allergy, Severe, DIZZINESS, 11/21/16) prednisone (Verified Allergy, Severe, DIFFICULTY BREATHING, 11/25/16) Sulfa (Sulfonamide Antibiotics) (Verified Allergy, Unknown, UNKNOWN, ) alprazolam (Verified Allergy, Unknown, UNKNOWN, 11/25/16) codeine (Verified Allergy, Unknown, UNKNOWN, 11/21/16) erythromycin base (Verified Allergy, Unknown, UNKNOWN, 11/25/16) guaifenesin (Verified Allergy, Unknown, UNKNOWN, 11/25/16) hydrocodone (Verified Allergy, Unknown, UNKNOWN (PT TAKING DRUG), 11/25/16) phenylephrine (Verified Allergy, Unknown, UNKNOWN, 11/25/16) pseudoephedrine (Verified Allergy, Unknown, UNKNOWN, 11/25/16) Exam Exam General Appearance: Alert, Oriented X3, Cooperative, No Acute Distress HEENT: Atraumatic, Mucous Membr Moist/[place] Neck: Within normal limits & unremarkable Respiratory: Other (no shortness of breath) Abdomen: Other (left upper quadrant colostomy) Skin: Other (colostomy) Wound Assessment & Procedure Additional Information: Patient has a left upper quadrant colostomy. Peristomal skin: Intact Mucocutaneous border: Sutures are intact Stoma: Patient has necrotic tissue covering most of the surface stoma, however red tissue is seen in the os. effluent: loose to semiformed brown with dark blood colored output also. Measurements. 1 1/4-1/2 x 1 1/4-1/2 x 1/2 inches Pouching system: Convatec #[id number] flat moldable barrier with matching pouch. Thin Carlos ring around the stoma and then apply the pouching system. Wound Assessment Impression: The patient is a 56 year old male with the diagnosis of cancer of the sigmoid colon. He had a LAR with descending colostomy on 11/27/16. His first postoperative day he had severe sepsis. Patient is going home today and wanted some pouching systems and information prior to going home. Problems: Plan: The patient return to the wound clinic next week for colostomy care. Pouching system: Convatec #[id number] flat moldable barrier with matching pouch. Thin Carlos ring around the stoma and then apply the pouching system. Patient'snurse was the going to see about getting home health to help the patient at home with his colostomy Patient understands and agrees with the plan of care. Follow-up Appointment: Wound Clinic Time Spent: 25 minutes were spell with the patient in direct encounter was greater than 50% in counseling. I discussed pouch changes and the skin care around the pouch, the entire pouching system was removed and reapplied step by step for the patient. We also discussed emptying the pouch and when that was to be done. Patient's questions were asked, discussed and answered. copies to: Meredith Bush MD, Audrey K ARNP Dec 02, 2016 20:12
--- NOTE | 2016-12-02 20:28 | PATH ---
SURGICAL PATHOLOGY Attending Physician:Elijah Francis CASE STATUS: Signed Out PATIENT NAME: NIYAH ROME PID: [id number] : 1960 DATE COLLECTED:11/27/2016 00:00 SPECIMEN: 1: Liver, Needle Biopsy 2: Colon, Resection Margin (donut) CLINICAL HISTORY: SIGMOID COLON CANCER 1). LIVER BIOPSY 2). RECTO SIGMOID COLON FINAL DIAGNOSIS: 1.LIVER, LAPAROSCOPIC BIOPSY: POSITIVE FOR METASTATIC ADENOCARCINOMA, MORPHOLOGICALLY CONSISTENT WITH COLORECTAL ORIGIN. 2.RECTOSIGMOID COLON, LAPAROSCOPIC-ASSISTED LOW ANTERIOR RESECTION (LENGTH 14.7 CM): MODERATELY DIFFERENTIATED ADENOCARCINOMA WITH MUCINOUS DIFFERENTIATION AND THE FOLLOWING FEATURES - CAP Cancer Case Summary: Specimen: Rectosigmoid (length 14.7 cm) Procedure: Laparoscopic-assisted low anterior resection Tumor Site: Rectosigmoid junction Tumor Size: 6.0 x 3.5 x 1.0 cm Macroscopic Tumor Perforation: Not present Histologic Type: Adenocarcinoma with mucinous differentiation Histologic Grade: High grade Microscopic Tumor Extension: Tumor extends through the muscularis propria into the pericolorectal tissues Margins: Margins negative for tumor Proximal Margin: 8.8 cm Distal Margin: 0.4 cm Circumferential (Radial) / Mesenteric Margin: 1.0 cm Treatment Effect: Not identified Lymph-Vascular Invasion: Suspicious foci present Perineural Invasion: Suspicious foci present Tumor Deposits: Present; 31 tumor deposits identified; sizes range from less than 1 mm to 12 mm in greatest dimension Pathologic Staging (AJCC 7th ed., 2010) TNM Descriptors: Primary Tumor: p T3 Regional Lymph Nodes: pN2b Number of Lymph Nodes Examined: 23 Number of Lymph Nodes Involved: 10 Distant Metastasis: pM1 Additional pathologist findings: - Intact nuclear expression of MMR proteins by IHC (performed on this patient's previous biopsy ([id number]; 11/14/16)). - KRAS and BRAF studies requested; results will be reported as an addendum. ICD10: C18.9 GROSS DESCRIPTION: The specimens are received in formalin, labeled with the patient's name, and sublabeled as the following: (1) liver biopsy; (2) rectosigmoid colon-suture proximal. (1) The specimen consists of multiple fragments of red-brown and pale yellow glistening rubbery tissue (1.5 x 0.6 x 0.1 cm in aggregate). Section code: (1A) tissue. Specimen entirely submitted. (2) The specimen consists of a segment of rectosigmoid (length-14.7 cm, proximal diameter-4.3 cm, with distal diameter-4.0 cm), and attached mesentery (53.8 cm in depth). This segment includes the rectosigmoid junction but does not extend beyond the peritoneal reflection. The specimen is received opened with the resection margins stapled. A black suture indicates the proximal resection margin. The mucosa is coronado smooth and shiny with normal folds. A coronado-white solid firm hrno-xzhq-squpayzsqjwtr circumferential mass (6.0 x 3.5 x 1.0 cm) involving the rectosigmoid junction is less than 0.1 cm from the serosa, 8.8 cm from the proximal, 0.4 cm from the distal, and 1.2 cm from the radial resection margins. The mass extends through the colon wall into the mesentery. The mass cut surface is chaudhary-white smooth and shiny. No other nodules, masses or lesions are identified within the rectosigmoid segment. Multiple possible lymph nodes (0.1 x 0.1 x 0.1 cm-1.2 x 0.7 x 0.6 cm) and satellite masses (0.3 x 0.2 x 0.1 cm - 1.7 x 0.8 x 0.5 cm) are identified within the mesentery. Ink code: black-resection margin; blue-serosa. Section code: (2A) proximal resection margin, longitudinally sectioned, ambulatory services representative; (2B, 2C) distal resection margin, longitudinally sectioned, ambulatory services representative; (2D, 2E) mass with serosa, serially sectioned, ambulatory services representative; (2F) mass with radial margin, serially sectioned, ambulatory services representative; (2G-2I) mass, one full cross section; (2J) proximal mass with uninvolved mucosa, longitudinally sectioned, ambulatory services representative; (2K-2M) mass, serially sectioned, ambulatory services representative; (2N-2Q) multiple intact lymph nodes; (2R) 2 bisected lymph nodes, one inked green; (2S) multiple intact masses; (2T-2CC) one bisected mass in each cassette. 11/28/16 ICD-9 CODES: CPT CODES: 1: 60887 2: 36371 Electronically Signed Out MD [facility] [address], [place] [address] Technical component performed at [facility], [address], [place], [address]
[2016-12-08] MEDS ORDERED: FUR20 PO (11:57)
== END 2016-12-02 18:15 | disposition home or self-care (01) | DRG 329 ==
LOC: SAS 05:36 → OSC 12:54 → PCC 11-28 18:01
PROVIDERS: ADMIT Student in an Organized Health Care Education/Training Program; ATTEND Student in an Organized Health Care Education/Training Program
PROC: 0D1M0Z4 Bypass Descending Colon to Cutaneous, Open Approach (ICD-10-PCS; 2016-11-27)
PROC: 0FB24ZX Excision of Left Lobe Liver, Percutaneous Endoscopic Approach, Diagnostic (ICD-10-PCS; 2016-11-27)
PROC: 0DTN0ZZ Resection of Sigmoid Colon, Open Approach (ICD-10-PCS; principal; 2016-11-27 07:30)
DX: C18.7 Malignant neoplasm of sigmoid colon (principal); A41.9 Sepsis, unspecified organism; C78.7 Secondary malignant neoplasm of liver and intrahepatic bile duct; T81.4XXA Infection following a procedure, initial encounter; Z53.31 Laparoscopic surgical procedure converted to open procedure; I10 Essential (primary) hypertension; K21.9 Gastro-esophageal reflux disease without esophagitis; F41.1 Generalized anxiety disorder; Z87.891 Personal history of nicotine dependence; J45.909 Unspecified asthma, uncomplicated

== ENCOUNTER 2016-12-09 16:59 | Inpatient (IN) | payer OTHER ==
[~2016-12-09] VITALS: Ht 185.4 cm; Wt 111.9 kg
[~2016-12-09 16:59] MED LIST changes: +ENOX40DI8 SUBQ; +FUR20 PO; -OMEP40CA36 PO; +POLY17PO6 PO
[2016-12-09] MEDS ORDERED: MetoCLOpramide 5 mg/mL 2 mL Inj IVPUSH PRN ×2 (17:00→18:05)
[2016-12-09] MEDS ORDERED: Ondansetron 2 mg/mL 2 mL Inj IVPUSH PRN ×2 (17:00→18:05)
[2016-12-09] MEDS ORDERED: Dextrose 5% Lactated Ringer's 1,000 ML IV SCH (17:00)
[2016-12-09 17:35] VITALS: BP 133/85; PULSE 105; RESP 22; O2SAT 99
--- NOTE | 2016-12-09 17:35 | NUR ---
Direct Admit Patient was a direct admit from the surgical clinic. Patient arrived in stable condition. VSS. Admit complete. Denies pain and nausea. Orientated to call light, bed, and visiting hours. Call light and tray table within reach. Will continue to monitor patient hourly. MD at bedside.
[2016-12-09] MEDS: Dextrose 5% Lactated Ringer's 1,000 ML IV SCH (18:03)
[2016-12-09] MEDS ORDERED: oxyCODONE-Acetamin 5-325 mg Tablet PO PRN (18:05)
[2016-12-09] MEDS ORDERED: HYDROmorphone 1 mg/mL Inj IVPUSH PRN (18:05)
[2016-12-09 18:31] LABS: Mean Corpuscular Hemoglobin 26.2 pg (27.0-35.0); Mean Corpuscular Volume 81.5 fL (81-100); Platelet Count 627 bil/L (150-400)
[2016-12-09 18:32] LABS: BASOPHILS % (AUTO) 0.6 % (0-3); EOSINOPHILS % (AUTO) 8.4 % (0-5); MONOCYTES % (AUTO) 7.2 % (4-12); NEUTROPHILS % (AUTO) 72.1 % (40-74)
[2016-12-09] MEDS ORDERED: GUAI120013 PO (18:33)
[2016-12-09] MEDS ORDERED: PSEU240T6 PO (18:33)
[2016-12-09 20:35] VITALS: BP 115/77; PULSE 92; RESP 20; O2SAT 97
--- NOTE | 2016-12-09 21:08 | HP ---
[address] [address] HISTORY AND PHYSICAL PATIENT: NIYAH ROME : 1960 MR#: [id number] ADMIT: 12/09/2016 JOB ID: [id number] DATE OF SERVICE: 12/09/2016 REASON FOR ADMISSION: Necrotic colostomy. HISTORY OF PRESENT ILLNESS: A 56-year-old male, recently diagnosed with stage IV adenocarcinoma of the colon, with liver and probable pulmonary metastases. He was admitted on November 27, 2016, by Dr. Jett Jean. He underwent laparoscopic-assisted low anterior resection with end-colostomy and liver biopsies. His final path report confirmed metastatic adenocarcinoma to the liver. He had a low anterior resection and end-colostomy because of the presumed assumption of residual metastatic disease in the pelvis. He was febrile and tachycardic in the early postoperative period but was discharged on the 5th postoperative day. At that time, he had a normal white blood cell count. He was afebrile and his tachycardia had resolved. The last notes by Dr. Jean describe stool in the ostomy appliance. Over the last couple of days, the patient has noticed a change in the appearance of his colostomy and the development of discomfort. He has not had a fever. It has continued to put out stool. He has not had nausea or vomiting. He was seen in the surgical clinic today by Ruddy Bolden PA-C, while I was operating. He observed colostomy necrosis and I advised admission. PAST MEDICAL HISTORY: Illnesses: Hypertension, anxiety, depression, history of tobacco use but is a former smoker, quitting in 1988, and obesity. CURRENT MEDICATIONS AT HOME: 1. Zyrtec 10 mg q.h.s. 2. Norvasc 10 mg daily. 3. Lisinopril 20 mg daily. 4. Sildenafil p.r.n. 5. Buspirone 15 mg b.i.d. 6. Doxepin 25 mg b.i.d. 7. Ibuprofen 800 mg t.i.d. 8. Furosemide 20 mg daily. 9. Hydrochlorothiazide 25 mg daily. 10. Potassium 99 mg daily. 11. Flonase spray. 12. Mucinex. 13. Pantoprazole 40 mg daily. ALLERGIES: 1. SULFA. 2. ALPRAZOLAM. 3. AMOXICILLIN. 4. CEFACLOR. 5. CIMETIDINE. 6. CLAVULANIC ACID. 7. CODEINE. 8. ERYTHROMYCIN BASE. SOCIAL HISTORY: He is single. He lives in [place]. REVIEW OF SYSTEMS: He denies abdominal pain, other than near the colostomy site, fevers, chills, nausea, vomiting. He still expresses hope in having his colostomy taken down. Currently, denies cardiopulmonary symptoms or difficulty urinating. PHYSICAL EXAMINATION: BMI 33.5, temperature 36.9, brachial blood pressure 133/85, pulse 105, respiratory rate 22, O2 sat room air 99%. HEENT: PERRLA, EOMI, no scleral icterus. Neck: No appreciable masses. Trachea midline. Lungs: Clear. Cardiac exam: Regular rhythm. No murmurs or gallops appreciated. Abdomen: Soft. His colostomy is retracted and what can be seen is necrotic but there is also stool on it. He does not have any surrounding cellulitis. Extremities: No edema. Skin: No anterior abdominal wall rashes. Neurologic exam: Appropriate affect. No obvious cranial nerve deficits. Moves all extremities. Gait normal. LABORATORY RESULTS: White blood cell count 9.3, with 72 segs. Hematocrit is 31.2, platelet count 627,000. Electrolytes are normal. Creatinine 0.7, glucose 96. Liver function tests all normal. Albumin 3.4. IMPRESSION: Necrosis of left end-colostomy. He is currently not septic. There is no evidence of an intra-abdominal infection. I do not think he needs to go to the operating room tonight. But rather I think it is best to certainly stabilize him, work him up with additional laboratory tests. I will also order a CT scan of his abdomen and pelvis with contrast tomorrow. I discussed options with the patient. He is expressing hope of having it taken down and reconnected, but I do not think that is appropriate at this time. Almost certainly, he will have to have a colostomy moved to the right side. Further workup will be done pending results of the CT scan.
[2016-12-10 00:45] VITALS: BP 126/79; PULSE 102; RESP 20; O2SAT 96
--- NOTE | 2016-12-10 03:41 | NUR ---
Activity Patient independent in room, denies intolerable pain, however states mild pain in lower left abdomen around his stoma site. little output in his colostomy. 22guage IV placed in right forearm, SCD's, and clear liquid diet. Care continues.
[2016-12-10 04:50] VITALS: BP 106/68; PULSE 95; RESP 20; O2SAT 93
[2016-12-10 06:05] LABS: BASOPHILS % (AUTO) 0.7 % (0-3); EOSINOPHILS % (AUTO) 7.7 % (0-5); MONOCYTES % (AUTO) 6.8 % (4-12); Mean Corpuscular Hemoglobin 25.8 pg (27.0-35.0); Mean Corpuscular Volume 81.2 fL (81-100); NEUTROPHILS % (AUTO) 73.8 % (40-74); Platelet Count 602 bil/L (150-400)
[2016-12-10] MEDS: Dextrose 5% Lactated Ringer's 1,000 ML IV SCH ×2 (06:20→14:03)
[2016-12-10] MEDS ORDERED: Furosemide 10 mg/mL 2 mL Inj IVPUSH SCH (08:30)
[2016-12-10 08:38] VITALS: BP 110/72; PULSE 96; RESP 18; O2SAT 96
[2016-12-10] MEDS: BusPIRone 15 mg Dividose Tablet PO SCH ×2 (09:23→20:44)
[2016-12-10] MEDS: Potassium Chloride 20 mEq/15 mL 15mL Oral Soln PO SCH ×2 (09:23→09:27)
[2016-12-10] MEDS: Pantoprazole 40 mg ER24 Tablet PO SCH (09:24)
--- NOTE | 2016-12-10 10:41 | NUR ---
NUTRITION ASSESSMENT: ASSESS: 56 YO Male recently admitted for stage IV adenocarcinoma with liver and probable pulmonary mets s/p laparoscopic assisted low anterior resection with Left end colostomy that is now necrotic. Pt will likely require surgery to move colostomy to right side per notes. PMHX: HTN, anxiety, depression, obesity. DIET: Clear Liquids, no po intake reported at this time. LABS: Reviewed. Cr .71, Alb 3.2 MEDS: Reviewed. GI: Colostomy, no output reported yet. WEIGHT: 114 kg. EST. NEEDS (CANCER/OBESITY): 8339-1217 kcals (22-25 kcal/kg BW), 100-125 g protein (1.2-1.5 g/kg IBW) NUTRITION DIAGNOSIS: (1) Increased nutrient needs related to increased demand for nutrients as evidenced by cancer diagnosis and current skin issue. INTERVENTION: (1) Recommend advancing diet per surgery recommendations when appropriate. (2) Will add ensure clear and Gelatein on all trays while pt on clear liquid diet. MONITOR/EVALUATE: PO intake, diet advancement / tolerance, labs, GI/nutritional status. Follow per high nutrition risk guidelines.
--- NOTE | 2016-12-10 11:10 | PROG NOTE ---
[address] [address] PROGRESS NOTE PATIENT: NIYAH ROME : 1960 MR#: [id number] ADMIT: 12/09/2016 JOB ID: [id number] DATE: 12/10/2016 SUBJECTIVE: The patient is seen in followup. He has no new complaints this morning. He has been stable through the night. Up walking around. Has minimal pain around the ostomy site. Stool has gone into his appliance. DATE: PHYSICAL EXAMINATION: Alert, no distress. BMI 33, temperature 36.3, brachial blood pressure 110/72, pulse 96, respiratory rate 18, O2 sat room air 96%. Small amount of stool in his appliance. Abdomen flat. LABORATORY RESULTS: This morning, white blood cell count 9.6, hematocrit 29, platelet count 602,000. Electrolytes are normal. Creatinine is normal. Lactic acid 0.8. IMPRESSION: Necrotic left end colostomy. PLAN: CT scan of the abdomen and pelvis today. He will need surgical revision either tomorrow or perhaps Thursday. Depending on the CT, I may start a bowel prep to try to empty his colon.
[2016-12-10] MEDS: Polyethylene Glycol (PEG) 17 Gm Powder PO SCH (12:30)
--- NOTE | 2016-12-10 12:32 | NUR ---
Ostomy Nurse Note Patient seen by CWON; he was resting quietly in bed, semi-reclined, stated that pain "isn't a problem right now." Patient shared how he is adjusting to colostomy, at first "totally freaked out," and now able to change bag independently, open to reviewing steps of wafer change. Patient stated that wafer is due to be changed tomorrow, declined changing today, as patient's primary RN had changed it already. Visual assessment of stoma through clear bag revealed moist, dark tissue that is retracted at subcu level. Patient stated that peristomal skin is intact, without pruritis or erythema. Patient aware that he may need revision. CWON made patient aware of her presence while he is inpatient and availability of trouble-shooting, education, and addressing triggers that exacerbate challenges with management (specifically, odor). Patient stated that he would call for CWON if wafer needed changing again today, will plan to meet tomorrow for wafer change and education.
[2016-12-10 12:45] VITALS: BP 102/68; PULSE 87; RESP 18; O2SAT 99
--- NOTE | 2016-12-10 13:54 | NUR ---
Blood pressure Pt reports his BP has been stabilizing over the last week and he has adjusted his medications accordingly. Currently he has not been taking his Norvasc but continues to take his Lasix and Hydrochlorothiazide with a Potassium replacement. MD aware of this and medications given per pt request. VSS.
--- NOTE | 2016-12-10 15:58 | DRSVH ---
PROCEDURE: CT ABDOMEN AND PELVIS WITH CONTRAST ([id number]) INDICATIONS: colostomy necrosis TECHNIQUE: After the administration of oral and intravenous contrast, 5 mm thick sections acquired from the diap hragms to the symphysis. 5 mm thick coronal and sagittal reformats were performed. For radiation do se reduction, the following was used: automated exposure control, adjustment of mA and/or kV accordi ng to patient size. COMPARISON: [facility], CT, CT CHEST ABD PELVIS W CON, 11/14/2016, 11:03. [facility], CT, CT CHEST ABD PELVIS W CON, 11/28/2016, 15:34. FINDINGS: Image quality: Excellent. ABDOMEN: Lung bases: Lung bases are clear. Heart size is normal. Solid organs: There are multiple mass lesions in the liver which appear slightly increased in size c ompared to the prior study. The largest, within the caudate lobe measures approximately 7.5 x 5.5 x 5.7 cm in dimension compared to approximately 6.8 x 5.4 x 5.5 cm previously. Another scheduling representative mass within the inferior right hepatic lobe measures up to 4.1 x 3.6 cm in transverse dimension khadra red to 3.9 x 3.5 cm previously. The spleen is normal in size. The gallbladder appears within normal limits without calcified gallstones. Biliary system is non-dilated. Pancreas enhances normally. N o adrenal nodules. Kidneys demonstrate no hydronephrosis. There is a small hypodensity in the left kidney likely representing a cyst. Peritoneum and bowel: Stomach and small bowel loops are normal in caliber and wall thickness. There are post surgical changes redemonstrated status post partial colectomy in the sigmoid colon. The re ctal stump appears similar in appearance to the prior study. There is a diverting left lower quadran t colostomy with apparent retraction of the colostomy loop internally. There is stool and gas demons trated along the colostomy tract extending into the abdomen in the left lower quadrant where there is a localized collection measuring approximately 6.7 x 3.5 x 4.7 cm suggestive of a developing abscess or phlegmon. There is mild colonic stool distention proximal to this level suggesting constipation or mild functional obstruction. There is a small amount of free fluid redemonstrated in the pelvis, decreased from the prior study. No free air. Nodes and vessels: No retroperitoneal or mesenteric adenopathy. Aorta and inferior vena cava are no rmal in caliber. Miscellaneous: No ventral hernias. PELVIS: Genitourinary: Bladder wall thickness is normal. Miscellaneous: No inguinal hernias or adenopathy. Bones: No suspicious bony lesions. No vertebral body compression fractures. IMPRESSION: 1. Interval internal retraction of the colostomy loop in the left lower quadrant with persistent gas and stool along the colostomy tract extending to a localized region in the left lower quadrant suspi cious for a developing abscess or phlegmon. 2. Mild colonic stool distention proximal to this level suggestive of constipation or mild functiona l obstruction. 3. Rectal stump appears similar to the prior study with a small amount of persistent but decreased f ree fluid in the pelvis. 4. Increase in size of multiple colonic mass lesions consistent with metastatic disease. Dictated by: Daniel Myrick M.D. on 12/10/2016 at 15:42 Approved by: Daniel Myrick M.D. on 12/10/2016 at 15:57
[2016-12-10 19:30] VITALS: BP 110/66; PULSE 104; RESP 18; O2SAT 98
[2016-12-10] MEDS: metroNIDAZOLE Inj 500 MG in IV Premix 1 EACH IV SCH (19:38)
[2016-12-10] MEDS: levoFLOXacin Inj 750 MG in IV Premix 1 EACH IV SCH (20:44)
[2016-12-10] MEDS ORDERED: Fluticasone 0.05% 15 Spray/2 Gm 16 Gm Nasal Spray NASAL PRN (21:00)
--- NOTE | 2016-12-11 03:05 | NUR ---
Stoma Took time to listen to patient discuss how the colostomy has affected his life and his feelings about it. Seems to be adjusting well, initially had some challenges in dealing with his new appearance. He expressed that he was looking into different clothing or contraptions to hold it in better and hide it.
[2016-12-11 04:37] VITALS: BP 104/70; PULSE 86; RESP 20; O2SAT 93
[2016-12-11 05:27] LABS: BASOPHILS % (AUTO) 0.7 % (0-3); EOSINOPHILS % (AUTO) 8.1 % (0-5); MONOCYTES % (AUTO) 8.9 % (4-12); Mean Corpuscular Hemoglobin 25.4 pg (27.0-35.0); NEUTROPHILS % (AUTO) 71.2 % (40-74); Platelet Count 567 bil/L (150-400)
[2016-12-11] MEDS: Pantoprazole 40 mg ER24 Tablet PO SCH (08:36)
[2016-12-11] MEDS: metroNIDAZOLE Inj 500 MG in IV Premix 1 EACH IV SCH ×2 (08:37→20:50)
[2016-12-11] MEDS: BusPIRone 15 mg Dividose Tablet PO SCH ×2 (08:37→20:44)
[2016-12-11] MEDS: Potassium Chloride 20 mEq/15 mL 15mL Oral Soln PO SCH (08:39)
--- NOTE | 2016-12-11 08:43 | PCM.PNSURG ---
Subjective Date of Service: Dec 11, 2016 Visit Information: Reason for Visit Metastatic Sigmoid Colon Ca, Ostomy Failure Surgery/Surgery Date Post-Op Day # Date of Admission: Dec 09, 2016 at 17:26 Hospital Day # Subjective: No acute overnight events Localized pain at ostomy site persists but is mild in severity Continues to have good ostomy output Afebrile, does not feel ill Tolerating clear liquids without n/v Objective Vital Sign- Last 8 Hours Date Time Temp Pulse Resp B/P Pulse Ox O2 Delivery O2 Flow Rate FiO2 12/11/16 04:37 36.6 86 20 104/70 93 Room Air Intake and Output- Last 8 Hour 12/11/16 Cumulative From/Thru 07:00 12/09/16 17:40 - 12/11/16 06:10 Intake Total 1473 ml 4773 ml Output Total 1600 ml 4151 ml Balance -127 ml 622 ml Intake Oral 1200 ml 3600 ml IV Total 273 ml 1173 ml Output Urine Total 1400 ml 3950 ml Stool Total 200 ml 201 ml # Voids 3 # Bowel Movements 0 General: Alert, Cooperative, No Acute Distress Neck: Supple Lungs: Normal Air Movement Abdomen: Other (Ostomy retracted and dusky appearing but appropriate amount of stool in bag. Mild ttp surrounding ostomy. No skin erythema. Abdomen otherwise benign with well healed lower midline incisional scar. ) Neuro: Grossly Neurologically Intact Result Diagram: 12/11/16 0506 12/11/16 0506 Assessment & Plan Impression 56M with stage IV sigmoid colon cancer s/p lap converted to open LAR and end descending colostomy on 11/27 who is readmitted with ostomy necrosis and retraction with localized intra-abdominal abscess formation. While not clinically ill, he will require surgical revision. Problems: Plan Neuro: PO pain control PRN CV/pulm: Home antihypertensives GI: Clears until NPO at MN. Plan on ostomy revision/resiting on 12/12. Continue IV antibiosis with levo/flagyl given concern for intra-abdominal abscess on CT. Renal: Voiding. Cr wnl. Heme/ID: Levo/flagyl as above Prophy: PPI, lovenox Activity: Up ad miguel Dispo: Floor Aaron Serrano MD Dec 11, 2016 08:43
[2016-12-11 09:07] VITALS: BP 114/73; PULSE 93; RESP 20; O2SAT 94
[2016-12-11] MEDS: Polyethylene Glycol (PEG) 17 Gm Powder PO SCH (12:24)
--- NOTE | 2016-12-11 13:04 | PROG NOTE ---
[address] [address] PROGRESS NOTE PATIENT: NIYAH ROME : 1960 MR#: [id number] ADMIT: 12/09/2016 JOB ID: [id number] DATE: 12/11/2016 SUBJECTIVE: The patient is seen in followup. He is feeling fine. He has no new complaints. He has minimal pain around his colostomy site. He is tolerating liquids. His ostomy is functioning. REVIEW OF SYSTEMS: No new symptoms. PHYSICAL EXAMINATION: Temperature 37.0, brachial blood pressure 114/73, pulse 93, respiratory rate 20, O2 sat room air 94%. Stool in ostomy. LABORATORY RESULTS: White count 7.4, hematocrit 29.7, platelet count 567,000. Electrolytes are normal. Glucose 94, creatinine 0.75. CT scan is reviewed. He has a colostomy retraction. IMPRESSION: Retracted colostomy. He is not septic. He will be given a gentle mechanical bowel prep today. He is on antibiotics. I did discuss a laparoscopy with creation of a loop colostomy in the right upper quadrant but also possibly a loop ileostomy tomorrow and then a segmental colectomy which is essentially resecting his previous left end colostomy. I think that this is the safest thing to do. It will provide the quickest way to get him recovered and then perhaps prior to discharge to get a Power Port so that he can initiate chemotherapy as soon as possible. The patient understands the risks include, but are not limited to bleeding, infection and injury to intra-abdominal organs such as small bowel. The patient agrees with this plan. The patient seen for decision to operate. Time spent with patient and in coordination of care with multiple other providers 45 minutes.
[2016-12-11 13:11] VITALS: BP 107/77; PULSE 109; RESP 18; O2SAT 99
--- NOTE | 2016-12-11 14:41 | NUR ---
Social Work- Initial Assessment/ Multidisciplinary Rounds Data: See Initial Assessment and Advance Directive Intervention for additional information. Pt discussed in rounds. Pt is going to the OR tomorrow for ostomy revision. Pt is a readmit, discharged on 12/02 with a discharge plan of home, no needs. Pt is a 56 year old admitted 12/09/16 for Ostomy failure per H&P. Pt's insurance is [employer]. Pt's PCP is Meredith Bush MD. Pt's readmit risk score is 5. SW met with pt at bedside regarding discharge plan, SW role explained. Pt alert and oriented x3. Pt's capacity for self-care assessed. Pt resides in [place] in a home with his mother. Pt's designated d/c contact is sister Feli Cabrales [phone] or [phone]. Pt is independent with ADLs and self-care. Pt assists his mother with care at times. Pt uses no DME at baseline. Pt drives. Pt has no history with HH services. Pt has no history with SNF services. Pt has no DPOA on file and SW provided paperwork at bedside. SW provided Discharge planning Checklist and requested that pt contact [employer] if needs identified. SW provided phone number and plan on whiteboard. Pt expressed questions related to his ostomy care, SW recommending that pt receive additional teaching on ostomy during this admission. SW left message for Wound Care regarding this. Pt is likely to discharge home with sister to transport via POV. No SW orders have been received at this time. SW will continue to follow. Assessment:Pt who is independent at baseline. Plan: Pt may benefit from additional ostomy teaching during this admission. SW left message for Wound Care regarding this. Pt is likely to discharge home with sister to transport via POV. No SW orders have been received at this time. SW will continue to follow. MIRYAM Sutton Addendum: 12/11/16 at 1446 by SHAYNA ERVIN SS Amended: Links added.
--- NOTE | 2016-12-11 14:48 | NUR ---
Inpatient Ostomy Nurse Patient up in chair at bedside when seen by CWON today; patient stated that he did not see logic of reviewing steps of wafer changing with stoma that is going to be taken down tomorrow. He would like to review steps of wafer change and ostomy care with stoma that is to be placed tomorrow. CWON confirmed patient's suggestion, as stoma will be different size, shape, and location. Patient stated that he feels comfortable emptying bag and will ask for assistance from nursing staff if he cannot manage ostomy until surgery. CWON instructed patient that she will be sure to work with him tomorrow; patient was instructed to ask for this CWON if he has any further questions this afternoon. Patient stated understanding and satisfaction with this plan.
--- NOTE | 2016-12-11 17:30 | NUR ---
GI Patient denies pain. Tolerating clear liquids. Denies nausea. No emesis noted. Denies SOB. He has been ambulating independently in the room. Gait is steady. Voiding without any problems. Colostomy in place with yellowish, watery output noted. NPO post midnight for anticipated surgery in the morning. Consent form has been signed.
[2016-12-11 19:34] VITALS: BP 116/73; PULSE 88; RESP 16; O2SAT 97
[2016-12-11] MEDS: levoFLOXacin Inj 750 MG in IV Premix 1 EACH IV SCH (22:14)
[2016-12-12] VITALS (10 sets, daily range): BP systolic 113–134; BP diastolic 67–80; PULSE 82–99; RESP 14–18; O2SAT 95–100
--- NOTE | 2016-12-12 03:43 | NUR ---
GI Pt. was educated on bowel prep. Pt. was informed that there might be an increase in stool and flatus in his colostomy. By 0300 today, his colostomy bag was almost full with stool and flatus. Pt. denies nausea or pain. Will continue to monitor.
[2016-12-12] MEDS ORDERED: Lactated Ringer's 1,000 ML IV SCH ×2 (05:00→12:01)
[2016-12-12] MEDS: Pantoprazole 40 mg ER24 Tablet PO SCH (07:30)
[2016-12-12 07:32] LABS: BASOPHILS % (AUTO) 0.6 % (0-3); MONOCYTES % (AUTO) 8.1 % (4-12); Mean Corpuscular Hemoglobin 25.9 pg (27.0-35.0); Mean Corpuscular Volume 81.7 fL (81-100); NEUTROPHILS % (AUTO) 69.6 % (40-74); Platelet Count 557 bil/L (150-400)
[2016-12-12] MEDS ORDERED: Phenylephrine/NS 100 mCg/mL 10 mL Syringe IVPUSH ONE (08:00)
[2016-12-12] MEDS ORDERED: Propofol 10,000 mCg/mL 20 mL Inj ONE (08:00)
[2016-12-12] MEDS ORDERED: Neostigmine 1 mg/mL 10 mL Inj ONE (08:00)
[2016-12-12] MEDS ORDERED: Rocuronium 10 mg/mL 5 mL Inj ONE (08:00)
[2016-12-12] MEDS ORDERED: Glycopyrrolate 0.2 MG/ML 1mL Inj ONE (08:00)
[2016-12-12] MEDS ORDERED: fentaNYL-PF 50 mCg/mL 2 mL Inj ONE (08:00)
[2016-12-12] MEDS ORDERED: Ondansetron 2 mg/mL 2 mL Inj ONE (08:00)
[2016-12-12] MEDS: Potassium Chloride 20 mEq/15 mL 15mL Oral Soln PO SCH (08:30)
[2016-12-12] MEDS: BusPIRone 15 mg Dividose Tablet PO SCH ×2 (08:30→21:14)
[2016-12-12] MEDS: metroNIDAZOLE Inj 500 MG in IV Premix 1 EACH IV SCH ×2 (08:30→21:15)
--- NOTE | 2016-12-12 10:18 | NUR ---
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 Pt has been NPO/CL x3 days. PO has been fair at 25-100%. Today he is NPO for ostomy revision surgery. PMHX: HTN, anxiety, depression, obesity. DIET: NPO/CL. PO 25-100%. NPO for surgery. LABS: Reviewed. Cr .71, Alb 3.2 MEDS: Reviewed. GI: Colostomy, 600ml output 12/11 WEIGHT: 113.9kg, 33.1kg/m2, IBW: 83.6kg, admit wt 115kg EST. NEEDS (CANCER/OBESITY): Kcals: 9473-0500 kcals (22-25 kcal/kg BW), Pro: 100-125 g protein (1.2-1.5 g/kg IBW) NUTRITION DIAGNOSIS: (1) Increased nutrient needs related to increased demand for nutrients as evidenced by cancer diagnosis and increased need for healing. INTERVENTION: (1) Recommend advancing diet per surgery recommendations when appropriate. (2) If pt requires prolonged period of bowel rest, recommend nutrition support be considered. (3) Will add appropriate supps once diet advanced MONITOR/EVALUATE: NPO, diet advancement / tolerance, labs, GI/nutritional status. Follow per high nutrition risk guidelines.
--- NOTE | 2016-12-12 10:18 | NUR ---
TO OR Report given to MEGHAN Alonzo. IV saline locked. Consent form is in the chart. Transported to the OR via a hospital bed.
[2016-12-12] MEDS ORDERED: Bupivacaine-MPF 0.5% W/EPI 30 mL Inj INFILTRATE ONE (11:18)
[2016-12-12] MEDS ORDERED: Lactated Ringer's 1,000 ML IV ONE (11:19)
[2016-12-12] MEDS: Polyethylene Glycol (PEG) 17 Gm Powder PO SCH (12:00)
[2016-12-12] MEDS ORDERED: Lactated Ringer's 500 ML IV PRN (12:01)
--- NOTE | 2016-12-12 12:04 | PCM.HPANE ---
Patient Data Date of Service: Dec 12, 2016 Surgeon Admitting Provider:Rolando Hughes MD Attending Provider:Rolando Hughes MD Primary Care Physician:Meredith Bush MD Other Provider:Dylan Castillo Anesthesia Reason for Visit Metastatic Sigmoid Colon Ca, Ostomy Failure Ht/WT & BMI Height (Feet): 6 Height (Inches): 1.00 Weight (Kilograms): 113.900 Body Mass Index 33.69 Allergies Coded Allergies: amoxicillin (Verified Allergy, Severe, BREATHING PROBLEMS, 11/25/16) cefaclor (Verified Allergy, Severe, ABD CRAMPING, 11/25/16) cimetidine (Verified Allergy, Severe, DISORIENTATION, 11/25/16) clavulanic acid (Verified Allergy, Severe, resp. difficulty, 11/25/16) ofloxacin (Verified Allergy, Severe, DIZZINESS, 11/21/16) prednisone (Verified Allergy, Severe, DIFFICULTY BREATHING, 11/25/16) Sulfa (Sulfonamide Antibiotics) (Verified Allergy, Unknown, UNKNOWN, ) alprazolam (Verified Allergy, Unknown, UNKNOWN, 11/25/16) codeine (Verified Allergy, Unknown, UNKNOWN, 11/21/16) erythromycin base (Verified Allergy, Unknown, UNKNOWN, 11/25/16) guaifenesin (Verified Allergy, Unknown, UNKNOWN, 11/25/16) hydrocodone (Verified Allergy, Unknown, UNKNOWN (PT TAKING DRUG), 11/25/16) phenylephrine (Verified Allergy, Unknown, UNKNOWN, 11/25/16) pseudoephedrine (Verified Allergy, Unknown, UNKNOWN, 11/25/16) Past Anesthesia History Anesthesia History: Denies:: Abnormal Airway, Anesthesia Reactions, Difficult Intubation, Fam Anesthesia Reaction, Fam Malignant Hypertherm, Malignant Hyperthermia Diabetes History Hx Diabetes?: No Current Bedside Blood Glucose: 106 MRSA MRSA: No Medications Blood Thinner: Aspirin Home Meds Incl Beta Nahed: No Active Scripts Polyethylene Glycol 3350 (Miralax)17 Gm Powd.pack17 Gm PO NOON #1 BOTTLE Ref 2 Prov:Ruddy Bolden PA-C 12/02/16 Enoxaparin Sodium 40 Mg/0.4 Ml Hxiooob98 Mg SUBQ Q24H #14 SYR Prov:Ruddy Bolden PA-C 12/02/16 Reported Medications Pseudoephedrine HCl (Sudafed 24-Hour)240 Mg Tab.er.59j598 Mg PO BID 12/09/16 Guaifenesin (Mucinex)1,200 Mg Tbmp.12hr1,200 Mg PO BID 12/09/16 Furosemide 20 Mg Tab20 Mg PO DAILY Ref 0 12/08/16 Potassium Gluconate (Potassium)99 Mg Tablet1-2 Tab PO DAILY 11/25/16 [magnesium] No Conflict Check1 Tab PO DAILY 11/25/16 Calcium Carbonate (Calcium)600 Mg Hyrgya932 Mg PO DAILY 11/25/16 Multivits-Min/FA/Lycopene/Lut (Centrum Silver Tablet)1 Each Tablet1 Each PO DAILY 11/25/16 Fluticasone Propionate (Flonase Allergy Relief)50 Mcg/Actuation [place].susp2 Sprays NS prn 11/25/16 Doxepin 25 Mg Gstntxx48 Mg PO DAILY-BID 30 Days 11/21/16 Cetirizine HCl (Zyrtec)10 Mg Ggfnqmd27 Mg PO HS #30 CAPSULE Ref 0 11/13/16 Sildenafil Citrate (Sildenafil)20 Mg Xcsblr26-85 Mg PO DAILY PRN PRN 11/13/[address] (Protonix)40 Mg Zuohfi89 Mg PO DAILY Ref 0 11/13/16 Amlodipine (Norvasc)10 Mg Vgyaow83 Mg PO DAILY Ref 0 11/13/16 Lisinopril 20 Mg Chgvzs11 Mg PO DAILY 30 Days Ref 0 11/13/16 Ibuprofen 800 Mg Izkihy426 Mg PO TID PRN For Pain Ref 0 11/13/16 Hydrochlorothiazide 25 Mg Yepnru78 Mg PO DAILY 30 Days Ref 0 11/13/16 Buspirone 15 Mg Htskst97 Mg PO BID Ref 0 11/13/16 Discontinued Scripts Levofloxacin 750 Mg Jfnrgv934 Mg PO DAILY #3 TABLET Prov:Ruddy Bolden-C 12/02/16 Metronidazole (Flagyl)500 Mg Tplhgr482 Mg PO Q8H #9 TABLET Prov:Ruddy Bolden-C 12/02/16 Acetaminophen/Codeine 300-30mg (Tylenol/Codeine #3)1 Each Tablet1-2 Tablet PO Q4H PRN Pain #20 TABLET Ref 0 Prov:Ruddy Bolden-C 12/02/16 Acetaminophen 325 Mg Cacsbm142-862 Mg PO Q6 PRN For Pain #120 TABLET Ref 0 Prov:Ruddy Bolden THAD 12/02/16 History History of ENT Problems?: Yes HEENT History: Positive for:: Cataracts Dysphagia Sinus Problem Denies:: Abnormal Airway Difficult Intubation Hearing Problem TMJ Denture Type: None Teeth Condition: Within Normal Limits Hx of Heart Problems?: No Cardiovascular History: Positive for:: Chest Pain Hypertension Denies:: AICD Abdominal Aortic Aneurism Atrial Fibrillation Cardiac Surgery Congestive Heart Failure Heart Murmur Irregular Heartbeat Pacemaker Rheumatic Fever Thrombophlebitis Valvular Heart Disease Hx of Respiratory Problem?: Yes Respiratory History: Positive for:: Use of C-PAP Machine (SNORES) Denies:: Asthma COPD Dyspnea Emphysema Hemoptysis Tuberculosis Hx Neurologic Problems?: No Neurological History: Denies:: Alzheimer's Disease CVA Dementia Dizziness Headaches Multiple Sclerosis Parkinson's Disease Seizures Hx of GI Problems?: Yes Gastrointestinal History: Positive for:: Hiatal Hernia Liver Disease Hx of Problems?: Yes Genitourinary History: Positive for:: Kidney Stones Denies:: HX of Hemodialysis Urinary Tract Infection HX of Peritoneal Dialysis: No Male Hx: Denies:: Prostate Problems Scrotal Mass Testicular Surgery Skin History: Positive for:: History Skin Disorders? (RASHES) Denies:: Pressure Ulcers Hx Musculoskeletal Problems?: Yes Musculoskeletal History: Positive for:: Musculoskeletal Trauma (LEFT KNEE SURGERY) Denies:: Back Injury Joint Replacement Hx of Psycho/Social Problems?: Yes Psycho Social History: Positive for:: Anxiety Denies:: Bipolar Disorder Hx Depression Hx Surgeries?: Yes Hx Any Other Health Problems?: Yes Other History: Positive for:: Cancer (Colon, liver, lungs) Hospitalization Denies:: Endocrine Disease Thyroid Disease History Blood Transfusions: Positive for:: Accept Blood Products? Denies:: Blood Transfuse Reaction Blood Transfusions Hx Diabetes: NoBedside Blood Glucose: 106 Hx Alcohol Use: NoHx Substance Use: No Smoking Status: Former Smoker Have You Smoked inLast 12 mo: No Stop/Bang Treated for Sleep Apnea?: Yes Do You Have a CPAP Machine?: Yes S-Snoring: Do You Snore Loudly: No T-Tired: feel tired, fatigued: No O-Obsered: Observed not breath: No P-Blood Pressure: treated: Yes B- Body Mass Index > 35 kg/m2: No A- Age over 50: Yes N- Neck Large Circumference: No G- Gender Male: Yes DANIELLE Total Score: 2 DANIELLE Risk Assessment: High Risk, =/>3 Yes Risk Assessment Category Category 1A: Patient has history of documented sleep apnea, and HAS NOT received any narcotic, sedative or anesthesia administration during this stay. Category 1B: Patient has history of documented sleep apnea, and HAS received any narcotic , sedative or anesthesia administration during this stay Category 2: Patient has SUSPECTED Obstructive Sleep Apnea, and HAS received any narcotic , sedative or anesthesia administration during this stay. Category 3: Patient has SUSPECTED Obstructive Sleep Apnea and HAS NOT received narcotic, sedative or anesthesia administration during this stay. Category 4: Outpatient in Procedural Areas with known sleep apnea or who screen positive for High Risk via the STOP/BANG questionnaire. Exam Exam Vital Signs Vital Signs Date Time Temp Pulse Resp B/P Pulse Ox O2 Delivery O2 Flow Rate FiO2 12/12/16 08:39 37.1 88 16 118/70 95 Room Air 12/12/16 05:15 37.1 86 18 113/74 95 Room Air General Appearance: Alert, Oriented X3 HEENT/AIRWAY: MP 1 Lungs: Clear to Auscultation, Normal Air Movement Heart: Exam Unremarkable Meds/Labs/Diagnostics Admission Meds Current Medications Magnesium Citrate (Magnesium Citrate Solution) 300 ml ONCE ONCE PO Last administered on 12/11/16 20:49; Start 12/11/16 at 20:10; Stop 12/11/16 at 20:11 ; Status DC Bupivacaine HCl/ Epinephrine Bitart 30 ml 30 ml STK-MED ONCE INFILTRATE Last administered on 12/12/16 11:18; Start 12/12/16 at 11:18; Stop 12/12/16 at 11:21 ; Status DC Lactated Ringer's (Lr) 1,000 ml @ ud STK-MED ONCE IV Last administered on 12/12 11:19; Start 12/12/16 at 11:19; Stop 12/12/16 at 11:20; Status DC Bedside Blood Glucose: 106 Labs Test 12/10/16 05:30 12/12/16 07:20 Lactic Acid Level 0.8mmol/L (0.4-2.0) Total Bilirubin 0.4mg/dL (0.0-1.2) Aspartate Amino Transf (AST/SGOT) 21U/L (0-50) Alanine Aminotransferase (ALT/SGPT) 35U/L (0-44) Alkaline Phosphatase 84U/L (25-150) Total Protein 5.6g/dL (6.4-8.4) Albumin 3.2g/dL (3.4-5.0) White Blood Count 6.8th/mm3 (3.8-10.1) Red Blood Count 3.55mil/mm3 (4.40-5.80) Hemoglobin 9.2g/dL (13.8-17.2) Hematocrit 29.0% (41.0-50.0) Mean Corpuscular Volume 81.7fL (81-100) Mean Corpuscular Hemoglobin 25.9pg (27.0-35.0) Mean Corpuscular Hemoglobin Concent 31.7% (32.0-37.0) Red Cell Distribution Width 14.2% (12.3-15.4) Platelet Count 557bil/L (150-400) Neutrophils (%) (Auto) 69.6% (40-74) Lymphocytes (%) (Auto) 11.4% (14-46) Monocytes (%) (Auto) 8.1% (4-12) Eosinophils (%) (Auto) 10.0% (0-5) Basophils (%) (Auto) 0.6% (0-3) Sodium Level 142mEq/L (134-144) Potassium Level 4.4mEq/L (3.5-5.2) Chloride Level 105mEq/L (97-108) Carbon Dioxide Level 24mmol/L (18-29) Blood Urea Nitrogen 10mg/dL (6-24) Creatinine 0.73mg/dL (0.76-1.27) Estimat Glomerular Filtration Rate 118mL/min (>59) Glucose Level 98mg/dL (60-99) Calcium Level 8.9mg/dL (8.5-10.1) Plan Impression Patient chart reviewed, patient interviewed and anesthestic plan with risks, benefits, and alternatives discussed, and informed consent obtained. NPO per Anesth. Guidelines: Yes ASA Physical Status: ASA3 Severe Disease Anesthetic Support Modalities: [place]shaw Scope Anesthetic Plan: GA Bene/Risks/Altern/Consents: Yes HP Complete Prior to Induction: Yes Lucas Arzola MD Dec 12, 2016 12:04
[2016-12-12] MEDS ORDERED: EPHEDrine Sulfate 50 mg/mL Inj IVPUSH PRN (12:05)
[2016-12-12] MEDS ORDERED: Phenylephrine 10,000 mCg/mL Inj IVPUSH PRN (12:05)
[2016-12-12] MEDS ORDERED: Dexamethasone 4 mg/mL Inj IVPUSH PRN (12:05)
[2016-12-12] MEDS ORDERED: fentaNYL-PF 50 mCg/mL 2 mL Inj IVPUSH PRN (12:05)
[2016-12-12] MEDS ORDERED: HYDROmorphone 1 mg/mL Inj IVPUSH PRN (12:05)
[2016-12-12] MEDS ORDERED: Ondansetron 2 mg/mL 2 mL Inj IVPUSH PRN (12:05)
--- NOTE | 2016-12-12 14:05 | NUR ---
POST-OP Patient received from PACU via a hospital bed. On O2 at 10 LPM via a mask. IVF ongoing. Colostomy on his R abdomen is CDI. Dressing in his L abdomen and medial abdomen is CDI. Patient stated that he does not need anything for pain at this time. Denies nausea/SOB. Oriented to room and call light.
[2016-12-12] MEDS: D5 0.45% NaCl + KCl 20 mEq/L 1,000 ML IV SCH (15:08)
[2016-12-12] MEDS ORDERED: HYDROcodone-APAP 5-325 mg Tablet PO PRN (15:35)
--- NOTE | 2016-12-12 16:42 | NUR ---
Inpatient Wound and Ostomy Nurse Patient seen by MANOJ at time of surgeon's bedside visit. He stated that he had no questions about wafer sizing and placement. Patient's surgical questions were answered by surgeon who felt that new R stoma looked as expected. Temporary drain placed in LLQ prior stoma covered with intact dressing. Patient may go home over weekend and if so, knows to call [facility] Center to schedule follow up with HEIKE Denson. Wound Center phone number was provided to patient. CWON will see patient on Thursday if he is not discharged.
--- NOTE | 2016-12-12 19:20 | OP ---
[address] [address] OPERATIVE REPORT PATIENT: NIYAH ROME : 1960 MR#: [id number] ADMIT: 12/09/2016 JOB ID: [id number] DATE OF SURGERY: 12/12/2016 SURGEON: Slim Alcantar MD. HOME HEALTH SPECIALIST: 1. Aaron Serrano MD. 2. Huan Alatorre PA-C. PREOPERATIVE DIAGNOSIS(ES): Retracted colostomy, possible intraabdominal infection. POSTOPERATIVE DIAGNOSIS(ES): Retracted colostomy, possible intraabdominal infection. PROCEDURE: Laparoscopic loop transverse colostomy, debridement, and descending colostomy. INDICATIONS: A 56-year-old man who presented in early November and underwent laparoscopic liver biopsy and laparoscopic-assisted low anterior resection with descending end-colostomy just 15 days ago. He has been identified to have stage IV colorectal cancer with plans for chemotherapy to begin on the . Unfortunately, he presented back to the hospital with what appears to be a necrotic end-colostomy. He has had no signs of systemic infection, but a CAT scan has been interpreted as demonstrating internal retraction of colostomy in the left lower quadrant with persistent gas and stool along the colostomy tract extending to a localized region in the left lower quadrant suspicious for a developing abscess or phlegmon. Options have been discussed with him per Dr. Hughes and the decision was made for him to return to the operating room today for a loop colostomy with a possible segmental colectomy with the goal being to perform the safest surgery possible with the intent of helping him recover as quickly as possible for initiation of chemotherapy. FINDINGS: 1. A registered nurse surgical services was required for retraction and camera operation. 2. See below for details. I elected to perform a transverse loop colostomy but leaving the previous colostomy in continuity with the defunctionalized end of the loop colostomy and simply debriding the old stoma. PROCEDURE: SCOAP protocol was followed. The patient was brought to the operating room. General anesthetic was administered. Surgical time-out was performed. Prior to prepping and draping the abdomen in a sterile fashion, I examined his stoma. we took off the bag and cleaned off the liquid stool that was there. His stoma was patent widely. Centrally, there was approximately 3 cm of what appeared to be either necrotic full thickness, but more likely necrotic mucosa that I trimmed off. I explored the area around the stoma and it appeared that there may have been seromuscular wall still intact for most of the circumference of the stoma. With the blunt end of the forceps, I did find a couple deeper cavities but I did not want to probe them deeply as it was unclear to me whether these represented intramural colonic dissection or whether it was contained extracolonic perifascial space. We therefore just covered the old stoma site with an OpSite and prepped and draped the abdomen in a sterile fashion. We began with a right upper quadrant Veress needle and instilled pneumoperitoneum. We placed a 5 mm right upper quadrant optical port and we then inspected the abdomen. What we could see was old descending end-colostomy. There was greater omentum heaped up and adherent at the cephalad portion and on the caudad and medial portion there were small bowel loops. Again it remained unclear and impossible to determine whether this represented simple peristomal adhesions or represented an abdominal process walling off a subfascial abscess. I felt that it was in the patient's best interest not to pull these adhesions down but to leave them intact. We then opened up a window in the greater omentum that allowed us to see the transverse colon virtually in its entirety. We would later extend this window all the way up to the splenic flexure but did not mobilize the splenic flexure. Having identified what was healthy-looking transverse colon and mobilizing it by detaching the greater omentum from it, we could see that this would be easy to bring up without undue tension and with good vascularity up to the right of the midline for a transverse loop colostomy. I considered other options including segmental resection or performing an end transverse colostomy and leaving the distal colon essentially like a Sergio's pouch. I had some concerns regarding leaving a blind end leading to this retracted stoma site, and therefore, I elected just to simply proceed with a laparoscopic loop colostomy. Having identified where we were going to do this, we let our CO2 out, made a right upper quadrant stoma site, and dissected down, splitting the rectus muscle and then making an incision in the posterior rectus fascia. It easily accommodated two fingers and we were easily able to bring up a loop of transverse colon into the wound. We closed our laparoscopic incisions and placed dressings on them. We then matured the loop colostomy, trying to make the distal defunctionalized opening quite small. Having matured that ostomy and dressing and having dressed the laparoscopic incisions, I then took the OpSite off of the old stoma and we debrided some more of the sloughed mucosa and inspected it. We washed it out fairly well but without vigorous pressures. Again, I did not want to disrupt a contained subfascial infection. I did slip a [place] drain down along this opening that was either extracolonic or perhaps intramural and secured this with a nylon suture. Dry dressing was applied over this and the patient was then extubated and transferred to recovery room. The patient tolerated the procedure well. We will follow him along.
[2016-12-12] MEDS: levoFLOXacin Inj 750 MG in IV Premix 1 EACH IV SCH (21:15)
[2016-12-13] MEDS: D5 0.45% NaCl + KCl 20 mEq/L 1,000 ML IV SCH ×2 (01:53→07:57)
[2016-12-13 04:36] VITALS: BP 113/72; PULSE 91; O2SAT 96
--- NOTE | 2016-12-13 06:59 | NUR ---
NOC PT doing well over noc. Pain rated at highest a 3/10. PT was slightly febrile 37.7 and was given tylenol for associated chills. PT encouraged to CDB. BS hypoactive t/o. Dressing to L abdomen is c/d/i. New colostomy draining small amount of sero-sang fluid. Stoma pink and moist. Lap sites are c/d/i. Lungs sounds are diminished posteriorly. SCD's in place. PT ambulates to BR to void. Gait is steady. IV fluids still infusing at this time. Will defer to day RN to H/L. Will CTM at this time.
--- NOTE | 2016-12-13 08:25 | PCM.ANEP1 ---
Post Anesthesia PACU Phase 1 Assessment Date of Service: Dec 13, 2016 Vital Signs Vital Signs Date Time Temp Pulse Resp B/P Pulse Ox O2 Delivery O2 Flow Rate FiO2 12/13/16 04:36 37.1 91 113/72 96 Room Air Anesthetic Administered: GA Level of Alertness: Awake, talking DEE's with Equal Strength: Yes Pain: No Pain Scale Score: 5 Nausea or Vomiting: No CV Function & Hydration Stable: Yes Airway Device: Oxygen Delivery: Room Air Lungs: Clear to Auscultation, Normal Air Movement PACU Phase 2 Assessment Complications: No Follow up Care: N/A Patient Instructions Provided: N/A Lucas Arzola MD Dec 13, 2016 08:25
[2016-12-13 08:57] LABS: BASOPHILS % (AUTO) 0.6 % (0-3); EOSINOPHILS % (AUTO) 8.9 % (0-5); MONOCYTES % (AUTO) 9.4 % (4-12); Mean Corpuscular Hemoglobin 25.9 pg (27.0-35.0); Mean Corpuscular Volume 82.8 fL (81-100); NEUTROPHILS % (AUTO) 71.8 % (40-74); Platelet Count 529 bil/L (150-400)
[2016-12-13 09:08] VITALS: BP 125/81; PULSE 98; RESP 20; O2SAT 98
[2016-12-13] MEDS: BusPIRone 15 mg Dividose Tablet PO SCH ×2 (09:11→20:44)
[2016-12-13] MEDS: Pantoprazole 40 mg ER24 Tablet PO SCH (09:11)
[2016-12-13] MEDS ORDERED: 0.9% Sodium Chloride 250 ML ONE (09:16)
[2016-12-13] MEDS: Potassium Chloride 20 mEq/15 mL 15mL Oral Soln PO SCH (09:22)
[2016-12-13] MEDS: metroNIDAZOLE Inj 500 MG in IV Premix 1 EACH IV SCH ×2 (09:23→20:44)
--- NOTE | 2016-12-13 10:36 | PCM.PNSURG ---
Subjective Date of Service: Dec 13, 2016 Visit Information: Reason for Visit Metastatic Sigmoid Colon Ca, Ostomy Failure Surgery/Surgery Date Post-Op Day # Date of Admission: Dec 09, 2016 at 17:26 Hospital Day # Subjective: Feels well overall. No acute overnight events Denies abdominal pain, n/v No ostomy output yet Hungry and desires advancement of diet Objective Vital Sign- Last 8 Hours Date Time Temp Pulse Resp B/P Pulse Ox O2 Delivery O2 Flow Rate FiO2 12/13/16 09:08 37.6 98 20 125/81 98 Room Air 12/13/16 08:25 Room Air 12/13/16 04:36 37.1 91 113/72 96 Room Air Intake and Output- Last 8 Hour 12/13/16 Cumulative From/Thru 07:00 12/09/16 17:40 - 12/13/16 05:54 Intake Total 2730 ml 86142 ml Output Total 1450 ml 9351 ml Balance 1280 ml 3122 ml Intake Oral 1000 ml 8850 ml IV Total 1730 ml 3623 ml Output Urine Total 1450 ml 7800 ml Stool Total 1541 ml Estimated Blood Loss 10 ml # Voids 5 # Bowel Movements 0 0 General: Alert, Oriented X3, Cooperative, No Acute Distress Neck: Supple Lungs: Normal Air Movement Heart: Exam Unremarkable Abdomen: Other (Several laparosocpic trocar incisions are cleanly dressed. RUQ ostomy pink and viable with scan sweat in bag. LLQ ostomy site packed with gauze and godwin, dressing clean. Abdomen soft, mildly distended, but nontender. ) Result Diagram: 12/13/16 0817 12/13/16 0718 Assessment & Plan Impression 56M with stage IV sigmoid cancer s/p open LAR with end colostomy complicated by ostomy necrosis and retraction now POD#1 s/p diverting loop transverse colostomy and washout of necrotic ostomy site. Problems: Plan Neuro: PO analgesia with apap and PRN vicodin. CV/pulm: Home meds. Encourage IS GI: Ok to advance diet to soft food. Patient instructed to limit PO intake if feeling distended, bloated, or nauseated. PRN bowel regimen and antiemetics available. Renal: Voiding Heme/ID: Continue levo/flagyl until discharge. FEN: Soft diet. Saline lock mIVF. Prophy: Lovenox, ppi. Wound: pack LLQ ostomy with moist gauze BID Dispo: Home once Aaron Reddy MD Dec 13, 2016 10:36
[2016-12-13] MEDS: Polyethylene Glycol (PEG) 17 Gm Powder PO SCH (12:53)
[2016-12-13 15:23] VITALS: BP 111/72; PULSE 94; RESP 24; O2SAT 95
--- NOTE | 2016-12-13 17:52 | NUR ---
Brunilda drain/Low grade fever Brunilda drain came out. Still attached via suture but not in old colostomy site anymore. Pt has had low grade fever all day 37.6. PRN 650mg PO Tylenol admin with no break in low grade fever. call out operator surgeon made aware. Advised to continue to monitor both fever and drainage. Left old ostomy site dressing changed with 4X4 gauze and [place] dressing over it secured with hypafix tape. Drainage is foul smelling and yellow, light green in color. Consistency is mucous like. Care ongoing. I offered pt if he wanted to speak with cokeman regarding his dx, pt refused. States he has friends and family as support system. He is aware of plan of care. Addendum: 12/13/16 at 1758 by IVANIA LOPES RN New colostomy on right side is draining sero-sanguinous fluid. Pt tolerating soft PO intake well with no reports of nausea. Miralax given earlier today.
[2016-12-13 20:20] VITALS: BP 128/78; PULSE 79; RESP 18; O2SAT 98
[2016-12-13] MEDS: levoFLOXacin Inj 750 MG in IV Premix 1 EACH IV SCH (20:45)
--- NOTE | 2016-12-14 05:55 | NUR ---
NOC PT has done well overnight. PT requested tylenol once this shift for mild abdominal pain. Afebrile this shift. New stoma site is moist and pink. Sero-sang drainage noted from colostomy. No stool yet. L abdominal wound was changed by MD shabnam garcia around 2100. Odor noted at old stoma site and drainage is yellow/green. Brunilda drain reinserted by MD. Pt tolerating general diet with no increased pain or nausea. UP ad miguel in room. Talked with PT about new diagnosis and his"plan." PT states he is "going to take one step at a time." PT has already taken leave from work and has good friends and family to help support him. Reported plan is to place port before d/c. Will continue with current POC. Continuing with IV abx.
[2016-12-14 06:41] VITALS: BP 114/74; PULSE 91; RESP 16; O2SAT 96
[2016-12-14 07:02] LABS: BASOPHILS % (AUTO) 0.6 % (0-3); EOSINOPHILS % (AUTO) 6.7 % (0-5); MONOCYTES % (AUTO) 11.1 % (4-12); Mean Corpuscular Hemoglobin 25.8 pg (27.0-35.0); Mean Corpuscular Volume 81.2 fL (81-100); NEUTROPHILS % (AUTO) 71.7 % (40-74); Platelet Count 508 bil/L (150-400)
[2016-12-14] MEDS: BusPIRone 15 mg Dividose Tablet PO SCH ×2 (07:57→20:45)
[2016-12-14] MEDS: Pantoprazole 40 mg ER24 Tablet PO SCH (07:57)
[2016-12-14] MEDS: metroNIDAZOLE Inj 500 MG in IV Premix 1 EACH IV SCH ×2 (07:57→20:45)
[2016-12-14] MEDS: Potassium Chloride 20 mEq/15 mL 15mL Oral Soln PO SCH (08:00)
--- NOTE | 2016-12-14 10:39 | PCM.PNSURG ---
Subjective Date of Service: Dec 14, 2016 Visit Information: Reason for Visit Metastatic Sigmoid Colon Ca, Ostomy Failure Surgery/Surgery Date Post-Op Day # Date of Admission: Dec 09, 2016 at 17:26 Hospital Day # Subjective: No acute overnight events Tolerating a soft diet without worsened abdominal pain, nausea, vomiting, or bloating Afebrile, no chills Denies chest pain or SOB Voiding spontaneously and ambulating Objective Vital Sign- Last 8 Hours Date Time Temp Pulse Resp B/P Pulse Ox O2 Delivery O2 Flow Rate FiO2 12/14/16 06:41 36.6 91 16 114/74 96 Room Air Intake and Output- Last 8 Hour 12/14/16 Cumulative From/Thru 07:00 12/09/16 17:40 - 12/14/16 06:41 Intake Total 900 ml 47985 ml Output Total 675 ml 74575 ml Balance 225 ml 3775 ml Intake Oral 900 ml 71014 ml IV Total 3738 ml Output Urine Total 575 ml 9175 ml Stool Total 100 ml 1641 ml Estimated Blood Loss 10 ml # Voids 7 # Bowel Movements 0 General: Alert, Oriented X3, No Acute Distress Neck: Supple Lungs: Normal Air Movement Abdomen: Other (Soft, nontender, and nondistended. RUQ ostomy pink and viable with serosanguinous sweat in the bag. LLQ ostomy site with fibrinopurulent discharge, no surrouding erythema. ) Result Diagram: 12/14/16 0620 12/14/1620 Assessment & Plan Impression 56M with stage IV sigmoid cancer s/p open LAR with end colostomy complicated by ostomy necrosis and retraction now POD#2 s/p diverting loop transverse colostomy and washout of necrotic ostomy site. Problems: Plan Neuro: Continue PO analgesia with apap and PRN vicodin. CV/pulm: Home meds. Encourage IS GI: Continue soft diet. Patient instructed to limit PO intake if feeling distended, bloated, or nauseated. PRN bowel regimen and antiemetics available. Renal: Voiding Heme/ID: Continue levo/flagyl until discharge. FEN: Soft diet. Saline lock mIVF. Prophy: Lovenox, ppi. Wound: pack LLQ ostomy with moist gauze BID. If godwin if dislodged today, it will be removed tomorrow morning. Dispo: Home once Aaron Reddy MD Dec 14, 2016 10:39
[2016-12-14 11:28] VITALS: BP 121/77; PULSE 88; RESP 18; O2SAT 99
--- NOTE | 2016-12-14 16:21 | NUR ---
Social Work: Continued Discharge Planning/Multidisciplinary Rounds D: EMR reviewed. See Initial Assessment. Pt is on day 5 of hospitalization. Pt discussed in multidisciplinary rounds. Pt's discharge pending OR. TED discussed potential need for RN for ostomy teaching. agreeable. Orders requested. to place orders pending OR. TED will follow-up with regarding orders tomorrow. A:Pt who is independent at baseline. P: Pt may benefit from additional ostomy teaching during this admission. TED discussed this with . agreeable. TED requested orders. MD to place orders pending OR. Pt is likely to discharge home with sister to transport via POV. No SW orders have been received at this time. TED will continue to follow. MIRYAM Dietrich
[2016-12-14] MEDS: Polyethylene Glycol (PEG) 17 Gm Powder PO SCH (17:49)
--- NOTE | 2016-12-14 18:02 | NUR ---
Dsg / Ostomy Left lower abd dressing with [place] drain under. yellow purulent drainage seeping through. Changed; flushed with NS, placed moist gauze over wound, then dry ABD over with Hypafix tape. Would edges appear pink and healing. no necrotic tissue noted at dsg change. Ostomy C/D/I reinforced at top with hypafix. Mostly Serosanguineous fluid noted in ostomy. Very scant amount of gel appearing brown/green bile coming from ostomy. Ostomy pink and healthy appearing. Care continues
[2016-12-14 21:11] VITALS: BP 107/69; PULSE 96; RESP 20; O2SAT 99
[2016-12-14] MEDS: levoFLOXacin Inj 750 MG in IV Premix 1 EACH IV SCH (22:31)
--- NOTE | 2016-12-15 02:07 | NUR ---
Drain/Colostomy R colostomy producing small amount brown mucus output. L abdominal drain intact, gauze changed BID by day shift. Pt states minor pain when ambulating, given APAP PRN Q6h. He does not want to take narcotics. Low grade fever continues, 99* temp. IV Abx infused and pt is then saline locked. No SOB or chest pain. Care continues
[2016-12-15 06:18] VITALS: BP 102/68; PULSE 86; RESP 18; O2SAT 94
--- NOTE | 2016-12-15 07:40 | PCM.DISURG ---
Surgical Discharge Instruction Date of Service Dec 15, 2016 Dates of Hospitalization Date of Hospital Admission Dec 09, 2016 at 17:26 Providers Admitting Physician: Rolando Hughes MD Primary Care Physician: Meredith Bush MD Attending Physician: Rolando Hughes MD Discharge Diagnosis Discharge Diagnosis rectosigmoid colon cancer, colostomy necrosis Diet Discharge Diet: No restrictions Activity Discharge Activity-General: No lifting >15 pounds for 2 weeks Dressing and Incisional Care Dressing Instructions: Change left abdominal colostomy dressing daily with wet to dry gauze. Hygiene: May shower Follow Up Plan Follow Up Plan [facility] the [facility] for colostomy care in 3-[address] Jean' office will call to arrange Portacath placement just prior to chemotherapy start date of 12/26. Call your provider for: Fever (over 101.5F), Increasing abdominal pain, Vomiting, Wound redness Dashawn Jean MD Dec 15, 2016 07:40
[2016-12-15] MEDS ORDERED: LEVO750T39 PO (07:42)
[2016-12-15] MEDS ORDERED: METR500T19 PO (07:42)
--- NOTE | 2016-12-15 08:07 | PROG NOTE ---
[address] [address] PROGRESS NOTE PATIENT: NIYAH ROME : 1960 MR#: [id number] ADMIT: 12/09/2016 JOB ID: [id number] DATE: 12/15/2016 SUBJECTIVE: The patient is seen in followup. He feels much better today. He is tolerating a general diet with no nausea. He has very little abdominal pain and is not taking narcotics. He started having some soft stool output into his new colostomy yesterday. There has been some purulent drainage from his previous left abdominal colostomy site. OBJECTIVE: Temperature 36.8, pulse 86, blood pressure 102/68, saturation 94% on room air. General: He is sitting up in bed, in no acute distress. Chest is clear. Heart: Regular rate and rhythm. No murmurs. Abdomen is soft, nondistended. His loop transverse colostomy has soft stool in the appliance and the ostomy itself is pink. The left abdominal colostomy site has no erythema of the skin. The Brunilda drain is intact and there is purulent drainage from the skin. Wet-to-dry dressing was removed and replaced. ASSESSMENT AND PLAN: A 56-year-old man with metastatic rectosigmoid colon cancer, readmitted with necrosis of his descending colostomy, status post debridement of descending colostomy with drainage of subcutaneous necrotic descending colon tissue. He is doing well clinically with return of bowel function. I think he can be discharged to home today. He should complete a total of 10 days of antibiotics, so those will be switched to oral form and prescribed electronically. He will follow up in the [facility] for colostomy care as well as management of his prior stoma site. I do think that he should still undergo Port-A-Cath placement to receive adjuvant chemotherapy, but we should wait until his left lower quadrant wound looks good. Potentially, I am thinking that can be done next week some time. We talked about the technical aspects of Port-A-Cath placement and risks, including, but not limited to, bleeding, infection, pneumothorax. He prefers Port-A-Cath placement on the left side. I will have my office work on scheduling that.
[2016-12-15] MEDS: Potassium Chloride 20 mEq/15 mL 15mL Oral Soln PO SCH (08:30)
--- NOTE | 2016-12-15 09:43 | PCM.DC.SUR ---
Discharge Summary Date of Service: Dec 15, 2016 Date of Hospital Admission: Dec 09, 2016 at 17:26 Date of Operation(s): 12/12/2016 Date of Discharge: 12/15/2016 Diagnosis at Time of Discharge PRIMARY DIAGNOSES: 1. Necrotic colostomy 2. Status post Laparoscopic loop transverse colostomy, debridement, and descending colostomy 3. 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 Problems: Operation Laparoscopic loop transverse colostomy, debridement, and descending colostomy Brief History and Physical: A 56-year-old male, recently diagnosed with stage IV adenocarcinoma of the colon , with liver and probable pulmonary metastases. He was admitted on November 27, 2016, by Dr. Jett Jean. He underwent laparoscopic-assisted low anterior resection with end-colostomy and liver biopsies. His final path report confirmed metastatic adenocarcinoma to the liver. He had a low anterior resection and end-colostomy because of the presumed assumption of residual metastatic disease in the pelvis. He was febrile and tachycardic in the early postoperative period but was discharged on the 5th postoperative day. At that time, he had a normal white blood cell count. He was afebrile and his tachycardia had resolved. The last notes by Dr. Jean describe stool in the ostomy appliance. Over the last couple of days prior to recent readmission and surgery, the patient has noticed a change in the appearance of his colostomy and the development of discomfort. He has not had a fever. It has continued to put out stool. He has not had nausea or vomiting. He was seen in the surgical clinic today by Ruddy Bolden PA-C, while I was operating. He observed colostomy necrosis and Dr. Hughes advised admission. Hospital Course: The patient was admitted with a history, presentation, and workup consistent with ostomy necrosis and retraction with localized intra-abdominal abscess formation and underwent the above-mentioned operation without complication. See operative report for details of the procedure. The patient's post surgical recovery was uneventful. Stool output was appreciated from the ostomy on postoperative day #3. The patient was confirmed stable for discharge on postoperative day #[address] Dashawn Jean M.D. At the time of discharge the patient was voiding without difficulty, there was positive signs of bowel function with a new ostomy, he was tolerating a regular diet without nausea or vomiting, pain was controlled with nonnarcotic by mouth analgesics only, the patient was ambulating without assistance, the previous left colostomy was presenting with some expected purulent drainage. The patient the patient was afebrile without an elevated white blood cell count and feeling much better. Dr. Jean & the patient had a detailed discussion regarding his postoperative care, follow-up, and when to seek immediate medical attention. The patient verbalized understanding on all discussed issues including but not limited to that he should complete a total of 10 days of oral antibiotics, follow up in 3-5 days to the [facility] for colostomy as well as management of his prior infected stoma site; and to finally undergo Port-A-Cath placement possibly next week prior to receiving adjuvant chemotherapy on 12/26/2016. Dr. Jean on the patient discussed all of the relevant technical aspects of Port-A-Cath placement and risks, including, but not limited to, bleeding, infection, pneumothorax. The patient agreed to proceed with a quarter Port-A-Cath placement as recommended on the left side. Disposition: Discharged home in stable condition on postoperative day #3. Follow-up Plan: 1. Follow-up with [facility] in 3-5 days for ostomy care and previous infected stoma management. 2. Plan for Port-A-Cath placement possibly in 1 week. ([magnesium]) 1 TAB PO DAILY (Reported) Amlodipine (Norvasc) 10 Mg Tablet 10 MG PO DAILY (Reported) Buspirone (Buspirone) 15 Mg Tablet 15 MG PO BID (Reported) Calcium Carbonate (Calcium) 600 Mg Tablet 600 MG PO DAILY (Reported) Cetirizine HCl (Zyrtec) 10 Mg Capsule 10 MG PO HS (Reported) Doxepin (Doxepin) 25 Mg Capsule 25 MG PO DAILY-BID (Reported) Enoxaparin Sodium (Enoxaparin Sodium) 40 Mg/0.4 Ml Syringe 40 MG SUBQ Q24H Fluticasone Propionate (Flonase Allergy Relief) 50 Mcg/Actuation [place].susp 2 SPRAYS NS prn (Reported) Furosemide (Furosemide) 20 Mg Tab 20 MG PO DAILY (Reported) Guaifenesin (Mucinex) 1,200 Mg Tbmp.12hr 1,200 MG PO BID (Reported) Hydrochlorothiazide (Hydrochlorothiazide) 25 Mg Tablet 25 MG PO DAILY (Reported ) Ibuprofen (Ibuprofen) 800 Mg Tablet 800 MG PO TID PRN PRN For Pain (Reported) Levofloxacin (Levofloxacin) 750 Mg Tablet 750 MG PO DAILY Lisinopril (Lisinopril) 20 Mg Tablet 20 MG PO DAILY (Reported) Metronidazole (Metronidazole) 500 Mg Tablet 500 MG PO TID Multivits-Min/FA/Lycopene/Lut (Centrum Silver Tablet) 1 Each Tablet 1 EACH PO DAILY (Reported) Pantoprazole DR (Protonix) 40 Mg Tablet 40 MG PO DAILY (Reported) Polyethylene Glycol 3350 (Miralax) 17 Gm Powd.pack 17 GM PO NOON Potassium Gluconate (Potassium) 99 Mg Tablet 1-2 TAB PO DAILY (Reported) Pseudoephedrine HCl (Sudafed 24-Hour) 240 Mg Tab.er.24h 120 MG PO BID (Reported ) Sildenafil Citrate (Sildenafil) 20 Mg Tablet 20-30 MG PO DAILY PRN PRN PRN ( Reported) Discharge Medications: The patient was given discharge prescriptions for oral acetaminophen, Tylenol 3 , levofloxacin, & metronidazole. Additional Information The patient is expecting a phone call from the outpatient general surgery clinic to schedule his Port-A-Cath placement possibly next week. copies to: Chelsea Bianchi MD; Alejandro Sandoval MD; Meredith Bush MD, Scott PA-C Dec 15, 2016 09:43
[2016-12-15] MEDS: Pantoprazole 40 mg ER24 Tablet PO SCH (10:09)
[2016-12-15] MEDS: BusPIRone 15 mg Dividose Tablet PO SCH (10:12)
[2016-12-15] MEDS: metroNIDAZOLE Inj 500 MG in IV Premix 1 EACH IV SCH (10:19)
[2016-12-15] MEDS: Polyethylene Glycol (PEG) 17 Gm Powder PO SCH (12:00)
--- NOTE | 2016-12-15 12:45 | NUR ---
Inpatient Wound and Ostomy Nurse Greater than one hour spent with patient this morning. Ostomy was leaking and so wafer and bag were removed. Since clear, adhesive dressings placed over R lateral abdomen surgical sites were placed under wafer, these were pulled off as wafer was removed. These sites were lightly cleansed, blotted dry, steristrips were patent, CDI, and so, not disturbed. New clear, adhesive dressings were placed over these three sites. Stoma pink and appropriately protruding with small amount of mucus on surface. Tension is firm. Numerous tiny clots noted on distal edge of stoma, likely dried blood, which concerned patient. These did not easily wipe away with wet washcloth, and so, were not disturbed. Peristomal skin intact, no ulcerations or open areas, no erythema. Output of mushy brown stool filled half of bag. Peristomal skin was cleansed, blotted dry, and heavily swabbed with skin prep and allowed to dry. Since patient has had significant leaking with this ostomy, an Eakins ring was opened to appropriate size and placed around stoma. A moldable wafer was opened and placed over ring. Patient was then instructed to attach pouch which he was unable to do. Although distal half of pouch would attach to ring, proximal half would not. Patient does not have adequate pain control to use enough force to push and snap pouch onto ring. Since CWON also was not able to attach pouch without causing excessive pain, wafer and pouch were removed, which also caused clear, adhesive dressing to be removed. Clear, adhesive dressings were reapplied to R lateral abdomen. follow by Eakins ring around stoma. Pouch was then attached to moldable wafer which was then opened and applied over Eakins ring. In this way, only the pressure to attach wafer is required and no pressure to snap pouch onto ring as it was attached prior to wafer application. Once ostomy was changed, it was noted that LLQ dressing was saturated and beginning to leak at distal edge. Patient stated that MD had changed this approximately 4.5 hours earlier. This dressing was taken down, skin cleansed of brown liquid, blotted dry, swabbed with skin prep. and then covered with ABD, edges adhered with retention tape. Packing and drains were left in place. Patient complained of RUQ pain during this wound care. Patient was instructed to follow up at [facility] Center with HEIKE Morrison CWON and appointment was confirmed with Wound Center staff for Thursday, December 22. All patient's questions were answered. He did not feel steps of ostomy management were different than what he had been doing with LLQ ostomy with exception of Eakins ring and attachment of pouch to wafer prior to wafer application. He stated that he has numerous supplies at home. Signs and symptoms requiring urgent attention were reviewed. Patient was instructed to keep all appointments.
[2016-12-15 13:26] VITALS: BP 110/66; PULSE 78; RESP 19; O2SAT 96
--- NOTE | 2016-12-15 14:56 | NUR ---
Social Work: Readiness for Discharge D: EMR reviewed. Pt is on day 6 of hospitalization. SW received MD orders for HH RN for ostomy care. Pt's insurance is [employer]. SW provided choice list. Pt chose [facility] - only agency contracted with [employer] on list provided. [facility] stated that pt would have to pay 30% out of pocket until he met his deductible of $1487. SW confirmed information with pt. RN also discussed following up with wound care for pt's needs. Pt stated he does not want to pay out of pocket for HH services and is agreeable to discharge without HH and follow-up with [facility] regarding ostomy. SW asked if pt had any concerns regarding discharge. Pt stated he feels okay to follow-up wit wound care without HH. No other SW needs identified. No other MD orders received. A: Pt who is independent at baseline P: Pt to discharge home with family today via POV. Pt to follow-up with [facility] for ostomy. Pt declined HH at this time due to out of pocket costs. Pt agreeable to discharge plan. RN updated. All agreeable to plan. MIRYAM Dietrich
--- NOTE | 2016-12-15 15:15 | NUR ---
HOME HEALTH: Cheri at [facility] stated they are not contracted with [employer]. Also called and spoke with Santa at [facility] and [facility] is the only company that is coming up in their system as contracted with [employer]. Reference # for this call is [id number]. Updated [employer] CHANGE
--- NOTE | 2016-12-15 15:38 | NUR ---
Social Work: Discharge D: EMR reviewed. Pt is on day 6 of hospitalization. Pt stated he does not want to pay out of pocket for HH services and is agreeable to discharge without HH and follow-up with [facility] regarding ostomy. SW asked if pt had any concerns regarding discharge. Pt stated he feels okay to follow-up wit wound care without HH. No other SW needs identified. No other MD orders received. A: Pt who is independent at baseline P: Pt to discharge home with family today via POV. Pt to follow-up with [facility] for ostomy. Pt declined HH at this time due to out of pocket costs. Pt agreeable to discharge plan. RN updated. All agreeable to plan. MIRYAM Dietrich
--- NOTE | 2016-12-15 16:34 | NUR ---
Discharge- D/c instructions provided to pt. Instructions explained to pt and all pt's questions were answered to his satisfaction re: d/c. Notified of when to f/u with MD for apts as well as if any problems or concerns arise. Pt with pain in LUQ, Dr Jean notified and he is aware, d/c still ok. PIV removed intact without issue. Pt took all belongings with him.
[2016-12-19] MEDS ORDERED: ACET1TAB42 PO (12:01)
== END 2016-12-15 16:35 | disposition home or self-care (01) | DRG 329 ==
LOC: OSC 17:26
PROVIDERS: ADMIT Surgery; ATTEND Surgery
PROC: 0DBM0ZZ Excision of Descending Colon, Open Approach (ICD-10-PCS; 2016-12-12)
PROC: 0D1L4Z4 Bypass Transverse Colon to Cutaneous, Percutaneous Endoscopic Approach (ICD-10-PCS; principal; 2016-12-12 10:00)
DX: K94.09 Other complications of colostomy (principal); K65.1 Peritoneal abscess; C19 Malignant neoplasm of rectosigmoid junction; C78.7 Secondary malignant neoplasm of liver and intrahepatic bile duct; I96 Gangrene, not elsewhere classified; C78.00 Secondary malignant neoplasm of unspecified lung; Z87.891 Personal history of nicotine dependence; Z79.82 Long term (current) use of aspirin; I10 Essential (primary) hypertension; E66.9 Obesity, unspecified; Z68.33 Body mass index [BMI] 33.0-33.9, adult

== ENCOUNTER 2016-12-22 11:55 | Day surgery (SDC) | payer OTHER ==
[~2016-12-22] VITALS: Ht 185.4 cm; Wt 114.1 kg
[~2016-12-22 11:55] MED LIST changes: +ACET1TAB42 PO; -CALC600T12 PO; +Clindamycin Inj 900 MG in IV Premix 1 EACH IV ONE; -ENOX40DI8 SUBQ; -FUR20 PO; +GUAI120013 PO; -HYDR25TA4 PO; -IBUP800T28 PO; +LEVO750T39 PO; -LISI-567 PO; -POLY17PO6 PO; +PSEU240T6 PO
[2016-12-22] MEDS ORDERED: fentaNYL-PF 50 mCg/mL 2 mL Inj ONE (11:56)
[2016-12-22] MEDS ORDERED: Ondansetron 2 mg/mL 2 mL Inj ONE (11:56)
[2016-12-22] MEDS ORDERED: Propofol 10,000 mCg/mL 20 mL Inj ONE (11:56)
[2016-12-22] MEDS ORDERED: Dexamethasone 4 mg/mL Inj ONE (11:56)
[2016-12-22] MEDS ORDERED: Ketamine 10 mg/mL 20 mL Inj ONE (11:56)
[2016-12-22] MEDS ORDERED: Clindamycin 900 mg/50 mL D5W Premix IV ONE (12:07)
[2016-12-22 12:16] VITALS: BP 132/78; PULSE 87; RESP 16; O2SAT 100
[2016-12-22] MEDS ORDERED: METR500T19 PO (12:24)
[2016-12-22] MEDS ORDERED: MAGN500C4 PO (12:25)
[2016-12-22] MEDS ORDERED: IBUP800T28 PO (12:26)
[2016-12-22] MEDS ORDERED: Lactated Ringer's 1,000 ML IV ONE ×2 (12:29→15:18)
--- NOTE | 2016-12-22 14:09 | PCM.HPANE ---
Patient Data Date of Service: Dec 22, 2016 Surgeon Admitting Provider: Attending Provider:Dashawn Jean MD Primary Care Physician:Meredith Bush MD Other Provider:Dylan Castillo Anesthesia Reason for Visit Sigmoid Colon Cancer Ht/WT & BMI Height (Feet): 6 Height (Inches): 1 Weight (Kilograms): 114.1 Body Mass Index 33.00 Allergies Coded Allergies: amoxicillin (Verified Allergy, Severe, BREATHING PROBLEMS, 12/22/16) cimetidine (Verified Allergy, Severe, DISORIENTATION, 12/22/16) clavulanic acid (Verified Allergy, Severe, resp. difficulty, 12/22/16) prednisone (Verified Allergy, Severe, DIFFICULTY BREATHING, 12/22/16) Sulfa (Sulfonamide Antibiotics) (Verified Allergy, Unknown, UNKNOWN, ) alprazolam (Verified Allergy, Unknown, UNKNOWN, 12/22/16) codeine (Verified Allergy, Unknown, UNKNOWN, 12/22/16) erythromycin base (Verified Allergy, Unknown, UNKNOWN, 12/22/16) guaifenesin (Verified Allergy, Unknown, UNKNOWN, 12/22/16) phenylephrine (Verified Allergy, Unknown, UNKNOWN, 12/22/16) pseudoephedrine (Verified Allergy, Unknown, UNKNOWN, 12/22/16) cefaclor (Verified Adverse Reaction, Severe, GI CRAMPING, 12/22/16) ofloxacin (Verified Adverse Reaction, Severe, DIZZINESS, 12/22/16) Past Anesthesia History Anesthesia History: Denies:: Abnormal Airway, Anesthesia Reactions, Difficult Intubation, Fam Anesthesia Reaction, Fam Malignant Hypertherm, Malignant Hyperthermia Diabetes History Hx Diabetes?: No MRSA MRSA: No Medications Blood Thinner: Aspirin Hypertension Medication: No Home Meds Incl Beta Nahed: No Active Scripts Levofloxacin 750 Mg [id number] Mg PO DAILY #6 TABLET Prov:Dashawn Jean MD 12/15/16 Reported Medications Ibuprofen 800 Mg Wtrftk304 Mg PO TID PRN For Pain 12/22/16 Magnesium Oxide (Magnesium)Unknown Strength Capsule1 Tablet PO DAILY 12/22/16 Metronidazole 500 Mg Qzrrom277 Mg PO TID Ref 0 12/22/16 Acetaminophen/Codeine 300-30mg 1 Each Tablet1 Tablet PO Q4H PRN Pain Ref 0 12/19/16 Pseudoephedrine HCl (Sudafed 24-Hour)240 Mg Tab.er.14d517 Mg PO BID 12/09/16 Guaifenesin (Mucinex)1,200 Mg Tbmp.12hr1,200 Mg PO BID 12/09/16 Potassium Gluconate (Potassium)99 Mg Tablet1-2 Tab PO DAILY 11/25/16 Multivits-Min/FA/Lycopene/Lut (Centrum Silver Tablet)1 Each Tablet1 Each PO DAILY 11/25/16 Fluticasone Propionate (Flonase Allergy Relief)50 Mcg/Actuation [place].susp2 Sprays NS prn 11/25/16 Doxepin 25 Mg Vmtyubu53 Mg PO DAILY-BID 30 Days 11/21/16 Cetirizine HCl (Zyrtec)10 Mg Dxafyhv66 Mg PO HS #30 CAPSULE Ref 0 11/13/16 Sildenafil Citrate (Sildenafil)20 Mg Pskbfe95-71 Mg PO DAILY PRN PRN 11/13/[address] (Protonix)40 Mg Osdpue62 Mg PO DAILY Ref 0 11/13/16 Amlodipine (Norvasc)10 Mg Jgiegs94 Mg PO DAILY Ref 0 11/13/16 Buspirone 15 Mg Yexovz26 Mg PO BID Ref 0 11/13/16 Discontinued Reported Medications [magnesium] No Conflict Check1 Tab PO DAILY 11/25/16 Furosemide 20 Mg Tab20 Mg PO DAILY Ref 0 12/08/16 Calcium Carbonate (Calcium)600 Mg Nffxju649 Mg PO DAILY 11/25/16 Lisinopril 20 Mg Pwtqaz71 Mg PO DAILY 30 Days Ref 0 11/13/16 Ibuprofen 800 Mg Sjvkag854 Mg PO TID PRN For Pain Ref 0 11/13/16 Hydrochlorothiazide 25 Mg Ymldau01 Mg PO DAILY 30 Days Ref 0 11/13/16 Discontinued Scripts Metronidazole 500 Mg Kwqbny716 Mg PO TID #18 TABLET Ref 0 Prov:Dashawn Jean MD 12/15/16 Polyethylene Glycol 3350 (Miralax)17 Gm Powd.pack17 Gm PO NOON #1 BOTTLE Ref 2 Prov:Ruddy Bolden PA-C 12/02/16 Enoxaparin Sodium 40 Mg/0.4 Ml Sozqhvc42 Mg SUBQ Q24H #14 SYR Prov:Ruddy Bolden PA-C 12/02/16 History History of ENT Problems?: Yes HEENT History: Positive for:: Cataracts Sinus Problem Denies:: Abnormal Airway Difficult Intubation Dysphagia Hearing Problem TMJ Denture Type: None Teeth Condition: Missing Teeth Hx of Heart Problems?: No Cardiovascular History: Positive for:: Chest Pain Hypertension Denies:: AICD Abdominal Aortic Aneurism Atrial Fibrillation Cardiac Surgery Congestive Heart Failure Heart Murmur Irregular Heartbeat Pacemaker Rheumatic Fever Thrombophlebitis Valvular Heart Disease Hx of Respiratory Problem?: Yes Respiratory History: Positive for:: Dyspnea (recent CXR, angioplasty- PE ruled out) Use of C-PAP Machine Denies:: Asthma COPD Emphysema Hemoptysis Tuberculosis Hx Neurologic Problems?: No Neurological History: Denies:: Alzheimer's Disease CVA Dementia Dizziness Headaches Multiple Sclerosis Parkinson's Disease Seizures Hx of GI Problems?: Yes Other GI Pertinent History: colectomy done 12/12- stomas in place- metastatic colon cancer Hx of Problems?: Yes Genitourinary History: Positive for:: Kidney Stones Denies:: HX of Hemodialysis Urinary Tract Infection HX of Peritoneal Dialysis: No Male Hx: Denies:: Prostate Problems Scrotal Mass Testicular Surgery Skin History: Denies:: History Skin Disorders? (HX OF TINEA CORPORIS, RASHES) Pressure Ulcers Hx Musculoskeletal Problems?: Yes Musculoskeletal History: Positive for:: Musculoskeletal Trauma (LEFT KNEE SURGERY) Denies:: Back Injury Joint Replacement Hx of Psycho/Social Problems?: Yes Psycho Social History: Positive for:: Anxiety Denies:: Bipolar Disorder Hx Depression Hx Surgeries?: Yes (colectomy) Hx Any Other Health Problems?: Yes Other History: Positive for:: Cancer (Colon, liver, lungs) Hospitalization Denies:: Endocrine Disease Thyroid Disease History Blood Transfusions: Denies:: Blood Transfuse Reaction Blood Transfusions Hx Diabetes: No Hx Alcohol Use: NoHx Substance Use: No Smoking Status: Former Smoker Have You Smoked inLast 12 mo: No Stop/Bang P-Blood Pressure: treated: No B- Body Mass Index > 35 kg/m2: No A- Age over 50: Yes N- Neck Large Circumference: No G- Gender Male: No DANIELLE Risk Assessment: Low Risk, <3 Yes Risk Assessment Category Category 1A: Patient has history of documented sleep apnea, and HAS NOT received any narcotic, sedative or anesthesia administration during this stay. Category 1B: Patient has history of documented sleep apnea, and HAS received any narcotic , sedative or anesthesia administration during this stay Category 2: Patient has SUSPECTED Obstructive Sleep Apnea, and HAS received any narcotic , sedative or anesthesia administration during this stay. Category 3: Patient has SUSPECTED Obstructive Sleep Apnea and HAS NOT received narcotic, sedative or anesthesia administration during this stay. Category 4: Outpatient in Procedural Areas with known sleep apnea or who screen positive for High Risk via the STOP/BANG questionnaire. Exam Exam Vital Signs Vital Signs Date Time Temp Pulse Resp B/P Pulse Ox O2 Delivery O2 Flow Rate FiO2 12/22/16 12:16 36 87 16 132/78 100 Room Air General Appearance: Alert, Oriented X3, Cooperative, No Acute Distress HEENT/AIRWAY: MP 2 Lungs: Clear to Auscultation, Normal Air Movement Heart: Exam Unremarkable, Regular Rate/Rhythm, No Murmurs/Rubs/Gallops Meds/Labs/Diagnostics Admission Meds Current Medications Lactated Ringer's (Lr) 1,000 ml @ ud STK-MED ONCE IV Last administered on t 12:29; Start 12/22/16 at 12:29; Stop 12/22/16 at 12:30; Status DC Plan Impression Patient chart reviewed, patient interviewed and anesthestic plan with risks, benefits, and alternatives discussed, and informed consent obtained. NPO per Anesth. Guidelines: Yes ASA Physical Status: ASA2 Mod Systemic Disease Anesthetic Plan: MAC Bene/Risks/Altern/Consents: Yes HP Complete Prior to Induction: Yes Familia Ayala DO Dec 22, 2016 14:09
[2016-12-22] MEDS ORDERED: Bupivacaine 0.5%/EPI 50 mL Inj INFILTRATE ONE (15:49)
[2016-12-22] MEDS ORDERED: HepLOK Flush 100 unit/mL 5 mL Inj IVFLUSH ONE (15:50)
--- NOTE | 2016-12-22 16:02 | PCM.SURGOP ---
Surgical Operative Report Date of Service: Dec 22, 2016 Pre Operative Diagnosis metastatic colon cancer Post Operative Diagnosis same Procedure: Tunneled left subclavian central venous catheter with power port; intraoperative fluoroscopy with interpretation Surgeon and Extension Service Supervisor: Surgeon: Dashawn Jean MD Assistants: Artur Serrano MD PGY-3 Indication for Procedure 56 year-old man who recently underwent resection of a distal sigmoid colon cancer with biopsy-proven liver metastasis. He also has enlarging bilateral pulmonary nodules, highly concerning for widespread metastatic disease. After discussion of risks and benefits, he agreed to proceed with Portacath placement. Findings: The catheter tip was positioned at the cavoatrial junction, confirmed with fluoroscopy. Procedure Details After smooth induction of monitored anesthesia care, the patient was positioned in the supine position with both arms tucked. He was prepped and draped in wide sterile fashion. A procedural pause was performed according to the SCOAP checklist, and all were found to be in agreement. He was placed in Trendelenburg position. The left subclavian vein was accessed with a finder needle, and the 0.035 inch wire was passed into the vena cava. It was confirmed with fluoroscopy. A subcutaneous pocket was created on the left upper chest wall using electrocautery. The port reservoir was secured to the fascia with interrupted 3-0 Vicryl sutures. The catheter was connected to the tunneler, and tunneled under the subcutaneous tissue to the venipuncture site. The introducer sheath and dilator was passed over the wire under fluoroscopic guidance. The catheter was then passed through the tear-away sheath into the vena cava. The sheath was removed. The catheter was then pulled back under fluoroscopic guidance until the tip was positioned at the cavoatrial junction. The catheter was cut to size, and connected to the port reservoir. The port was accessed using a Saeed needle, which aspirated and flushed easily. The port was then flushed with the final heparin flush, consisting of 100 units per mL, a total of 4 mL. A final fluoroscopic image confirmed that the port was in good position with no kinks, and there was no evidence of pneumothorax. The incision was closed with a running 4-0 Monocryl subcuticular stitch. Steri-Strips and sterile dressings were applied. At the end of the case all needle and sponge counts were correct 2. The patient was awakened from anesthesia without difficulty, and taken to the recovery room in satisfactory condition, having tolerated the procedure well. Complications There were no periprocedural complications identified. Surgical Specimen Removed: No Specimen sent to Pathology: Not applicable Anesthetic Plan: MAC Grafts, Implants: Implants-See Implant Record Output, Estimated Blood Loss: 10 Blood Administration during brooks: No Drains: None Catheters: None copies to: Alejandro Sandoval MD; Meredith Bush MD, Joshua D MD Dec 22, 2016 16:02
[2016-12-22] MEDS ORDERED: Lactated Ringer's 500 ML IV PRN (16:13)
[2016-12-22] MEDS ORDERED: Lactated Ringer's 1,000 ML IV SCH (16:13)
[2016-12-22] MEDS ORDERED: MetoCLOpramide 5 mg/mL 2 mL Inj IVPUSH PRN (16:15)
[2016-12-22] MEDS ORDERED: Atropine 0.4 mg/mL Inj IVPUSH PRN (16:15)
[2016-12-22] MEDS ORDERED: Labetalol 5 mg/mL 4 mL Inj IV PRN (16:15)
[2016-12-22] MEDS ORDERED: Ondansetron 2 mg/mL 2 mL Inj IVPUSH PRN (16:15)
[2016-12-22] MEDS ORDERED: fentaNYL-PF 50 mCg/mL 2 mL Inj IVPUSH PRN (16:15)
[2016-12-22 16:38] VITALS: BP 126/66; PULSE 103; RESP 16; O2SAT 93
--- NOTE | 2016-12-22 16:44 | PCM.DISURG ---
Surgical Discharge Instruction Date of Service Dec 22, 2016 Dates of Hospitalization Date of Hospital Admission Providers Admitting Physician: Primary Care Physician: Meredith Bush MD Attending Physician: Dashawn Jean MD Discharge Diagnosis Post Operative diagnosis same Activity Discharge Activity-General: Be up and about, Activity as pain allows, No driving while taking narcotic Dressing and Incisional Care Dressing Care: Allow Steri Stripes to fall off Hygiene: May shower, DO NOT soak incision under water, NO bathtub, hot tub or whirlpool Follow Up Plan Follow Up Plan With your oncologist in the next 2 weeks Call your provider for: Fever, Chills, Increasing wound pain, Discharge @ incision, pus discharge Aaron Serrano MD Dec 22, 2016 16:44
[2016-12-22] MEDS ORDERED: oxyCODONE-Acetamin 5-325 mg Tablet PO PRN (16:45)
[2016-12-22 16:56] VITALS: BP 120/66; PULSE 98; RESP 16; O2SAT 94
--- NOTE | 2016-12-23 07:55 | PCM.ANEP1 ---
Post Anesthesia PACU Phase 1 Assessment Date of Service: Dec 22, 2016 Anesthetic Administered: MAC Level of Alertness: Awake, talking DEE's with Equal Strength: Yes Pain: No Nausea or Vomiting: No CV Function & Hydration Stable: Yes Airway Device: Oxygen Delivery: Room Air Lungs: Clear to Auscultation, Normal Air Movement Dermatome Level: Full Sensation PACU Phase 2 Assessment Complications: No Patient Instructions Provided: N/A Familia Ayala DO Dec 23, 2016 07:55
[2016-12-26] MEDS ORDERED: IBUP800T28 PO (08:48)
[2016-12-26] MEDS ORDERED: HYDR25TA4 PO (08:48)
== END 2016-12-22 23:59 | disposition home or self-care (01) ==
LOC: SAS 11:55
PROVIDERS: ATTEND Student in an Organized Health Care Education/Training Program
DX: C19 Malignant neoplasm of rectosigmoid junction (principal); I10 Essential (primary) hypertension; R06.00 Dyspnea, unspecified; F41.9 Anxiety disorder, unspecified; Z87.891 Personal history of nicotine dependence; Z93.3 Colostomy status; Z79.82 Long term (current) use of aspirin
CPT/HCPCS: 36561; 77001; C1788; J1100; J1642; J2250; J2405; J3010; J3490; J7120